=== PATIENT | female | born 1935 | race Hispanic/Latino ===

== ENCOUNTER 2022-06-17 08:42 | Day surgery (SDC) | payer SELFPAY ==
[2022-06-14 17:17] LABS: Absolute Lymphocytes (CBC) 2.7 K/uL (0.7-4.9); Hematocrit 35.9 % (36.0-45.0); Lymphocytes % 37.7 % (15.3-44.8); MCV 96.8 fL (80-100); RBC Red Blood Cell Count 3.71 M/uL (3.86-4.86)
[2022-06-14 17:25] LABS: SARS-CoV-2 Antigen Rapid Res Negative (Negative)
[2022-06-14 17:33] LABS: Albumin 2.9 g/dL (3.4-5.0); Bilirubin Direct 0.2 mg/dL (0-0.2); Bilirubin Total 0.5 mg/dL (0.2-1.0); Potassium 4.2 mmol/L (3.5-5.1); Protein, Total 6.3 g/dL (6.4-8.2)
[2022-06-17] MEDS ORDERED: CEFOXITIN SODIUM 1 GM/VIAL ONE (09:07)
[2022-06-17] MEDS ORDERED: NA CHLORIDE 0.9% 1,000 ML ONE (09:07)
[2022-06-17] MEDS ORDERED: ACETAMINOPHEN 500 MG TAB ONE (09:16)
[2022-06-17] MEDS ORDERED: CELECOXIB 100 MG CAPSULE ONE (09:16)
[2022-06-17] MEDS ORDERED: propofoL 200 MG/20 ML VIAL IV ONE (09:23)
[2022-06-17] MEDS ORDERED: ONDANSETRON 4 MG/2 ML VIAL ONE (09:23)
[2022-06-17] MEDS ORDERED: LIDOCAINE 1% MPF 5 ML VIAL ONE (09:23)
[2022-06-17] MEDS ORDERED: ROCURONIUM 50 MG/5 ML VIAL IV ONE (09:23)
[2022-06-17] MEDS ORDERED: FENTANYL CITR 100 MCG/2 ML ONE (09:23)
--- NOTE | 2022-06-17 10:40 | P.BOP ---
Preoperative diagnosis: symptomatic cholelithiasis, RUQ abd pain, cholecystitis Postoperative diagnosis: same Primary procedure: Laparoscopic cholecystectomy Metal Flow Coordinator: Jackie Suarez (Vinicius) Estimated blood loss: <10cc Specimen: gb Findings: as above Anesthesia: General Complications: None Transferred to: Recovery Room Condition: Good
[2022-06-17] MEDS ORDERED: SUGAMMADEX SODIUM 200 MG/2 ML VIAL IV ONE (10:44)
[2022-06-17] MEDS ORDERED: Mastisol Adhesive Liq ONE (10:49)
--- NOTE | 2022-06-17 11:41 | OP ---
Date of Procedure: 06/17/2022 Surgeon: Luis Davies MD Back Joiner: Jackie Saleem. Preoperative Diagnoses: Symptomatic cholelithiasis, right upper quadrant abdominal pain, cholecystit is. Postoperative Diagnoses: Symptomatic cholelithiasis, right upper quadrant abdominal pain, cholecysti tis. Procedure: Laparoscopic cholecystectomy. Estimated Blood Loss: Less than 10 mL. Specimen: Gallbladder. Anesthesia: General plus local. Indication: This is the case of an 87-year-old patient with above diagnoses. Fully explained to the patient's power of state's attorney and family and the patient itself. The benefits, alternatives, and risk s of laparoscopic possible open cholecystectomy, which include, but not limited to infection, bleedin g, damage to adjacent structures, anesthesia complication, MN, and even . She also understands and the family understands this may not relieve any symptoms. She might need more than one surgical intervention. She understood, signed a consent. Procedure In Detail: The patient was brought to the operating room, placed in supine position. Anes thesia was done without complication. Abdominal area was prepped and draped in the usual sterile fas hion. Local anesthesia was applied followed by sharp incision of the skin in the infraumbilical shea on. The incision was carried down to fascia, which was opened under direct vision. Peritoneum was e ncountered, opened under direct vision. Vicryl #1 placed inside the fascia. Jaime trocar was caref ully introduced. Pneumoperitoneum was obtained. I placed 3 more trocars, 5 mm each one of them in t he epigastric right upper quadrant area under direct visualization. After that, we put a grasper in the fundus of the gallbladder, another grasper in the infundibulum, retracting the gallbladder in the inferolateral fashion, exposing the triangle of Calot, and obtaining critical view. Cystic duct and cystic artery were clearly isolated, freed circumferentially and a connection between those and the gallbladder were clearly identified. I proceeded to ligate this structure with at least 3 clips prox imal, 1 clip distal, ligation in middle. Same was done with the cystic artery. A small little branc h of the cystic artery was also ligated. Hepatic arteries and common bile duct were protected at all times. At that moment, I proceeded to remove the gallbladder from the liver using Bovie cauterizer and removed from abdominal cavity using EndoCatch through the umbilical incision. The area was inspe cted once again. Clips were intact. No bile leak. No bleeding. At that moment, I proceeded to rem ove the trocars under direct vision. Deflated pneumoperitoneum, closed the fascia with a #1 Vicryl. Irrigated subcutaneous tissue, closed that with 3-0 chromic and skin with 3-0 chromic and Steri-Stri ps on top. Sponge count, instrument counts correct. The patient tolerated the procedure well. The patient was sent to recovery in stable condition. RADHA/CHRISTIAN Voice ID: [id number] Report ID: [id number]
--- NOTE | 2022-06-17 11:47 | DS ---
Diagnoses: Symptomatic cholelithiasis, right upper quadrant abdominal pain, cholecystitis. Procedure: Laparoscopic cholecystectomy. Disposition: Home. Activity: As tolerated. No heavy lifting. Plan: Follow up in my office in 1 week. Call for appointment at [phone]. Keep area dry for 48 ra rs, then may shower. Keep Steri-Strip intact. The patient advised to contact her primary doctor reg arding her blood thinners. It is okay from the surgical standpoint so far to resume the medications by tomorrow. Advised the family. HOMERO Voice ID: [id number] Report ID: [id number]
[2022-06-17] MEDS ORDERED: CODEINE 30MG/APAP 300MG TAB ONE (12:14)
[2022-06-17] MEDS ORDERED: CODEINE 30MG/APAP 300MG TAB PO ONE (12:15)
[2022-06-17 13:40] VITALS: BP 112/45; TEMP 97.3; O2SAT 96
== END 2022-06-17 12:35 | disposition home or self-care (01) ==
LOC: OR 08:42
PROVIDERS: ATTEND Surgery
PROC: 0FT44ZZ Resection of Gallbladder, Percutaneous Endoscopic Approach (ICD-10-PCS; principal; 2022-06-17 11:00)
DX: K80.10 Calculus of gallbladder with chronic cholecystitis without obstruction (principal); R10.11 Right upper quadrant pain; Z20.822 Contact with and (suspected) exposure to COVID-19; E11.9 Type 2 diabetes mellitus without complications; E78.00 Pure hypercholesterolemia, unspecified; I50.9 Heart failure, unspecified; I63.9 Cerebral infarction, unspecified
CPT/HCPCS: 36415; 80048; 80076; 82150; 82947; 83690; 85025; 87811; 88304; J0694; J2405; J2704; J3010; J7030

== ENCOUNTER 2022-12-19 00:05 | Emergency (ER) | payer SELFPAY ==
--- OUTSIDE RECORDS SUMMARY | 2022-12-19 00:10 | XMS REPORT | Continuity of Care Document ---
:1935 Author Organization [facility] t Address [address] [place] [address] Care Team Providers Name Role Phone ANDREA SRINIVASAN Attending Clinician Unavailable Julio Terry MD Attending Clinician JES FELICIANO Attending Clinician Unavailable MIGUEL A WELCH Attending Clinician Unavailable CHANDA GANNON I. Attending Clinician Unavailable CHANDA GANNON I. Admitting Clinician Unavailable Payers Payer Name Policy Type Policy Number Effective Date Expiration Date S [facility] - [id number] GENERIC - TAMMY CARE [facility]-MEDICAID - [id number] 2021 2021 MEDICAID 00:00:00 00:00:00 EES PENDING [id number] 2021 MEDICAID 00:00:00 Problems Condition Condition Condition Status Onset Resolution Last Treating Co mments Source Name Details Category Date Date Treatment Clinician Date Ischemic Ischemic Disease [facility] Stroke Stroke Disease Active 2020-[address] [facility] [address] [facility] Allergies, Adverse Reactions, Alerts Allergy Allergy Status Severity Reaction(s) Onset Inactive Treating Comm ents Source Name Type Date Date Clinician NO KNOWN Allergy Active [facility] Social History Social Habit Start Date Stop Date Quantity Comments Source History SDOH [facility] Std Drinks [facility] History SDOH [facility] Alcohol Binge Medical [facility] [facility] History SDOH [facility] Alcohol Comment Medical C enter Alcohol intake 2021-12-06 2021-12-[address] [facility]00 00:00:00 non-drinker Medical [facility] (finding) Tobacco use and 2021-09-17 2021-09-[address] [facility] exposure 00:00:00 00:00:00 Medical Center History SDOH 2021-09-17 2021-09-[address] [facility] Alcohol Frequency 00:00:00 00:00:00 Medical Center Sex Assigned At [address] [facility] 00[facility]00 [facility] Center Smoking Status Start Date Stop Date Source Never smoker [facility] Medications Ordered Filled Start Stop Current Ordering Indication Dosage Frequency Signature Comments Components Source Medication Medication Date Date Medication? Clinician (SIG) Name Name metformin Yes 850mg Take 850 [facility] (GLUCOPHAGE 1-06 mg by Sequ[facility]ah ) 850 MG 14:27: mouth 2 of tablet 43 times Medicin daily e (with meals). ASPIRIN 81 Yes Take by [facility] OR 1-06 mouth. Sequoyah 14:27: of 43 Medicin e atorvastati 2022- No 80mg Take 1 [facility] n (LIPITOR) 1-06 -07 Tablet by [facility] 80 MG 00:00: 05:59 mouth of tablet 00 :00 daily. Medicin e aspirin 81 2020-11 Yes 81mg QD Take [address] [facility] EC 0-25 by mouth [facility] tablet 11:18: daily. Medical [facility] Center metFORMIN 2020-11 Yes 850mg Take [address] (GLUCOPHAGE 0-25 mg by [facility] ) 850 MG 11:18: mouth Medical tablet 58 daily with Center breakfast . glyBURIDE 2020-11 Yes 5mg QD Take [address] (DIABETA) 5 0-25 by mouth Luke s MG tablet 11:18: daily. Medica l 57 Center atorvastati 2020-11- No 80mg QD Take [address] n (LIPITOR) 0-15 10-15 tablet (80 L ukes 80 MG 00:00: 23:59 mg total) Medica l tablet 00 :00 by mouth Center nightly. atorvastati 2020-11- No 80mg Take 80 mg Munir n (LIPITOR) 0-15 -06 by mouth. Co llege 80 MG 00:00: 00:00 of tablet 00 :00 Medicin e Vital Signs Vital Name Observation Time Observation Value Comments Source HEIGHT 2021-12-06 14:23:00 154.9 cm WEIGHT 2021-12-06 14:23:00 68.04 kg Systolic blood 2021-11-29 20:24:00 102 mm[Hg] [facility] pressure Medicine Diastolic blood 2021-11-29 20:24:00 55 mm[Hg] [facility] Medicine Heart rate 2021-11-29 20:24:00 71 /min [facility] Body height 2021-11-29 20:24:00 154.9 cm [facility] HEIGHT 2021-09-17 10:45:00 157.5 cm WEIGHT 2021-09-17 10:45:00 68.493 kg HEIGHT 2021-09-04 17:00:00 160 cm WEIGHT 2021-09-04 17:00:00 68.6 kg HEIGHT 2021-09-04 17:00:00 160 cm WEIGHT 2021-09-04 17:00:00 68.6 kg Procedures This patient has no known procedures. Plan of Care Planned Activity Planned Date Details Comments Source Future Scheduled 2022-12-[address] [facility] Test 00:00:00 Counseling and Medical Cente r Screening (12+) [code = Tobacco Cessation Counseling and Screening (12+)] Future Scheduled 2022-11-[address] [facility] Test 00:00:00 (12+) [code = Medical Center DEPRESSION SCREENING (12+)] Future Scheduled 2022-11-24 FALLS RISK SCREENING [facility] Test 00:00:00 [code = FALLS RISK Medical C enter SCREENING] Future Scheduled 2022-07-[address] [facility] Test 00:00:00 (#1) [code = Medical Center INFLUENZA VACCINE (#1)] Future Scheduled 2022-03-[address] [facility] Test 00:00:00 measurement Medical Center (procedure) [code = 37551774] Future Scheduled 2021-11-29 LIPID PANEL [code = Ordered: [facility] Test 15:01:41 91604-6] 11/29/2021 of Medicine Future Scheduled 2021-11-29 TETANUS SHOT (ADULT) [employer] Test 14:28:50 [code = TETANUS SHOT of Medi cine (ADULT)] Future Scheduled 2021-11-29 ZOSTER VACCINE (1 of [facility] [employer] Test 14:28:50 2) [code = ZOSTER of Medicin e VACCINE (1 of 2)] Future Scheduled 2021-11-29 FALL SCREEN [code = [facility] Test 14:28:50 FALL SCREEN] of Medicine Future Scheduled 2021-11-29 Screening for [facility] Test 14:28:50 osteoporosis of Medicine (procedure) [code = 357844136] Future Scheduled 2021-11-29 Pneumococcal 65+ (1 [employer] Test 14:28:50 of 1 - PPSV23) [code of Medi cine = Pneumococcal 65+ (1 of 1 - PPSV23)] Future Scheduled 2021-11-29 FLU VACCINE > 6 [facility] Test 14:28:50 MONTHS [code = FLU of Medici ne VACCINE > 6 MONTHS] Future Scheduled 2021-11-29 COVID-19 Vaccine (3 [employer] Test 14:28:50 - Booster for Pfizer of Medi cine series) [code = COVID-19 Vaccine (3 - Booster for Pfizer series)] Future Scheduled 1986 SHINGLES VACCINES ([address] [facility] Test 00:00:00 of 2) [code = Medical Center SHINGLES VACCINES (1 of 2)] Future Scheduled 1955 DTAP/TDAP/TD [facility] 00:[facility]00 VACCINES (1 - Tdap) Medical Center [code = DTAP/TDAP/TD VACCINES (1 - Tdap)] Future Scheduled [address] DIABETIC EYE EXAM [facility] Test 00:00:00 [code = DIABETIC EYE Medical Center EXAM] Future Scheduled 1946 Urine screening for [facility] Test 00:00:00 protein (procedure) Medical Center [code = 344456994] Future Scheduled 1942 PNEUMOCOCCAL 65+ YRS [facility] Test 00:00:00 (1 - PCV) [code = Medical nter PNEUMOCOCCAL 65+ YRS (1 - PCV)] Future Scheduled 1936 COVID-[address] [facility] Test 00:00:00 (#1) [code = Medical Center COVID-19 VACCINE (#1)] Encounters Start End Encounter Admission Attending Care Care Encounter Source Date/Time Date/Time Type Type Clinicians Facility Department ID 2022-12-11 2022-12-11 Outpatient [facility] [id number] Conor 14:09:16 14:09:16 0118 F Julito 2022-11-20 2022-11-20 Outpatient [facility] [id number] Conor 17:02:41 17:02:41 1228 F Julito 2022-09-18 2022-09-18 Outpatient [facility] [id number] Conor 15:30:31 15:30:31 1026 F Barton 2021-12-06 2021-12-06 Emergency ER [facility] Emergency [id number] [facility] 17:02:00 21:30:00 [facility] 2021-11-29 2021-11-29 Office MALENA Terry [id number] [facility] 14:00:00 16:38:49 Visit Julio AMBULATOR [id number] College Y [id number] of [id number] [facility] 800 e 2021-09-17 2021-09-17 Outpatient JUNIOR FELICIANO [facility] [id number] [facility] 10:42:41 10:42:41 JES 2021-09-04 2021-09-07 Inpatient ER REBEKAH [facility] Surgery [id number] [facility] 16:42:00 19:11:00 AHMED Results Test Description Test Time Test Comments Results Result Comments Source HEPATIC FUNCTION PANEL 2022-05-03 03:04:10 Test Item Value Reference Range Interpretation Comme nts PROTEIN, TOTAL (test code = 5.6 G/DL 6.1-8.3 L 2228) ALBUMIN (test code = 2201) 3.4 G/DL 3.5-5.2 L BILIRUBIN, TOTAL (test code = 0.5 MG/DL See_Comment [Automated message] The system 2206) which generated this result transmitted ref erence range: <=1.2. The refe rence range was not used to int erpret this result as ruby l/abnormal. BILIRUBIN, DIRECT (test code = 0.3 MG/DL 0.0-0.3 2022) ALKALINE PHOSPHATASE (test 179 U/L 40-142 H code = 2204) AST (test code = 2218) 150 U/L 9-40 H ALT (test code = 2219) 89 U/L 5-40 H UNLE SS OTHERWISE INDICATED, ALL TESTING PER FORMED [facility], [place]. [address], [place] [address] SIMULATION SPECIALIST: Arlyn CHERYBOWEN KIRBY [id number] CAP ACCREDITATION N O. [id number] TSH + FREE T4 [id number] 06:38:26 Test Item Value Reference Range Interpretation Comments TSH, THIRD GENERATION (test code 3.850 UIU/ML 0.400-4.100 = 2821) FREE T4 (THYROXINE) (test code = 1.17 NG/DL 0.80-1.90 2823) HEMOGLOBIN [id number] 04:33:32 Test Item Value Reference Range Interpretation Comments HEMOGLOBIN A1c (test code = 11148) 6.1 % 4.2-5.6 H ALBUMIN, URINE, [id number] 03:31:37 Test Item Value Reference Range Interpretation Comments ALBUMIN, URINE, 3.1 MG/DL NOT ESTAB UNLESS OTHE RWISE RANDOM (test code = INDICATE D, ALL TESTING 22487) [facility]. [address] [place] [address] [facility] DIRECTOR: Arlyn CHERYIA NUMBER [id number] CAP ACCREDITATION N O. [id number] COMPREHENSIVE METABOLIC [id number] 03:29:35 Test Item Value Reference Range Interpretation Comments GLUCOSE (test code = 117 MG/DL 70-99 H 2216) BUN (test code = 11 MG/DL 8-23 2207) CREATININE (test 0.88 MG/DL 0.60-1.30 code = 2214) eGFR (2020 CKD-EPI) 64 ML/MIN/1.73 >60 (test code = 80138) CALC BUN/CREAT (test 13 RATIO 6-28 code = 2235) SODIUM (test code = 143 MEQ/L 553-598 2148) POTASSIUM (test code 3.8 MEQ/L 3.5-5.4 = 2228) CHLORIDE (test code 105 MEQ/L 95-107 = 2215) CARBON DIOXIDE (test 25 MEQ/L 19-31 code = 2206) CALCIUM (test code = 9.5 MG/DL 8.5-10.5 2208) PROTEIN, TOTAL (test 6.1 G/DL 6.1-8.3 code = 2229) ALBUMIN (test code = 3.8 G/DL 3.5-5.2 2200) CALC GLOBULIN (test 2.3 G/DL 1.9-3.7 code = 2240) CALC A/G RATIO (test 1.7 RATIO 1.0-2.6 code = 2234) BILIRUBIN, TOTAL 0.5 MG/DL See_Comment [Automated message] (test code = 220) The syste m which generated this result transmit heriberto reference range : <=1.2. The refe rence range was not u sed to interpret th is result as normal/abnormal . ALKALINE PHOSPHATASE 201 U/L 40-142 H (test code = 220) AST (test code = 81 U/L 9-40 H 2217) ALT (test code = 61 U/L 5-40 H 2218) LIPID [id number] 03:29:35 Test Item Value Reference Range Interpretation Comments CHOLESTEROL (test 138 MG/DL <200 code = 2210) TRIGLYCERIDES (test 67 MG/DL <150 code = 2232) HDL CHOLESTEROL (test 74 MG/DL >39 code = 2220) CALC LDL CHOL (test 50 MG/DL <100 NOTE: C ALCULATED LDL code = 2237) IS BASED ON LAMEBRT-WARD METHOD WHICHINCLUDES ADJUSTABLE TRIGLYCERIDE:VL DL CHOLESTEROL RAT IO.THIS FACTOR VARIES B Y MEASURED TRIGLY CERIDE AND NON-HDLCHOL ESTEROL CONCENTRATIONS WITH INCREASED CALCU LATED LDL SEENIN HIGH ER TRIGLYCERIDE OR LOWER NON-HDL SPECIME NS. FOR MOREINFORMATION , SEE CLIENT ANNOUNCE MENT AT [email or web address] RISK RATIO LDL/HDL 0.68 RATIO <3.22 (test code = 223) POCT-GLUCOSE [id number] 17:17:29 Test Item Value Reference Range Interpretation Comments POC-GLUCOSE METER 154 mg/dL 70-110 H : Notified RN/: (RENE) (test code = TESTED AT [facility] 1168 6699) [facility], [address]: Mold Maker Plaster/Techni noe ID = [id number] for Wh ite (contract), Vinnie ert POCT-GLUCOSE [id number] 12:18:37 Test Item Value Reference Range Interpretation Comments POC-GLUCOSE METER 148 mg/dL 70-110 H : Notified RN/MD: (RENE) (test code = TESTED AT [place] [address] 1538) [facility], [address]: Mold Maker Plaster/Techni noe ID = [id number] for Wh ite (contract), Vinnie ert POCT-GLUCOSE [id number] 08:41:51 Test Item Value Reference Range Interpretation Comments POC-GLUCOSE METER 141 mg/dL 70-110 H : Notified RN/MD: (RENE) (test code = TESTED AT [facility] 67 1538) [facility], [address]: [employer] Maker [employer]aster/Techni noe ID = [id number] for Wh ite (contract), Vinnie ert PROTHROMBIN [id number] 05:20:52 Test Item Value Reference Range Interpretation Comments PROTIME (RENE) 14.0 seconds 11.9-14.2 (test code = 759) INR (RENE) (test 1.09 See_Comment [Automat ed message] code = 370) The system [employer]ifter generated this result transmitted ref erence range: <=5.90. The reference range was not used to int erpret this result as normal/abnormal . RECOMMENDED COUMADIN/WARFARIN INR THERAPY RANGESSTANDARD DOSE: 2.0 - 3.0 Includes: PROPHYLAXIS for venous thrombosis, systemic embolization; TREATMENT for venous thrombosis and/or pulmonary embolus.HIGH RISK: Target INR is 2.5-3.5 for patients with mechanical heart valves.CT, CTANGIO [id number] 15:47:00FU to determine if stroke expanding/rule out hemorrhagic conversion.Unlisted Reason for Exam - ClickYes and Enter Reason Below->No [facility] 1935 Sex: FFINAL REPORT CT, CTANGIO BRAINBRAIN CT WITHOUT CONTRAST INDICATION: Stroke, follow up COMPARISON: 09/04/2021 TECHNIQUE:Rapid acquisition spiral images were obtained between the aortic arch and the cranial vertex during intravenous contrast infusion to reconstruct axial images and angiographic 3D maximum intensity projections (MIP). 3-D volumetric reformatted images were created at a dedicated workstation. Precontrast images of the brain were also obtained. Stenosis evaluation reported in compliance with NASCET criteria. DOSE REDUCTION: Dose modulation, iterative reconstruction, and/or weight-based adjustment of the mA/kV was utilized to reduce the radiation dose to as low as reasonably achievable. FINDINGS:NECT BRAIN:Evolving left MCA infarct within the parietal and temporal lobe without hemorrhagic conversion or midline shift. Mild localized mass effect with sulcal effacement persists. Midline structures are normally developed. Mild chronic microvascular ischemic changes of the perive ntricular and subcortical white matter are present. No hydrocephalus. Orbits are within normal limits. No obstructive paranasal sinus disease. CTA BRAIN:Internal carotid arteries: Petrous, cavernous and supraclinoid portions patent. Middle cerebral arteries: Persistent partial occlusion of the left M2trbevnwv division. Right MCA M1-M2 branches demonstrate normal contrast enhancement.Anterior cerebral arteries: Bilateral ESTHER A1-A2 branches demonstrate normal contrast enhancement.Basilar system: Normal contrast opacification of the vertebrobasilar system.Posterior cerebral arteries: Normal contrast opacification of the bilateral DENTAL BILLING SPECIALIST P1-P2 branches.Venous opacification: Major dural sinuses unremarkable for bolus timing.Additional findings: None. IMPRESSION: Evolving left MCA infarct within the parietal and temporal lobe without hemorrhagic conversion or midline shift. Mild localized mass effect with sulcal effacement persists. 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 Signed: Haylee Galeano Verified Date/Time: 09/06/2021 15:47:57 Reading Location: [address] Neuro Reading Room BASI METABOLIC [id number] 07:10:26 Test Item Value Reference Range Interpretation Comments SODIUM (BEAKER) 138 meq/L 136-145 (test code = 381) POTASSIUM (BEAKER) 4.0 meq/L 3.5-5.1 (test code = 379) CHLORIDE (BEAKER) 110 meq/L 98-107 H (test code = 382) CO2 (BEAKER) (test 21 meq/L 22-29 L code = 355) BLOOD UREA NITROGEN 23 mg/dL 7-21 H (BEAKER) (test code = 354) CREATININE (BEAKER) 0.88 mg/dL 0.57-1.25 (test code = 358) GLUCOSE RANDOM 115 mg/dL 70-105 H (BEAKER) (test code = 652) CALCIUM (BEAKER) 8.4 mg/dL 8.4-10.2 (test code = 697) EGFR (BEAKER) (test 61 mL/min/1.73 ESTIMA HERIBERTO GFR IS code = 1092) sq m NOT ACCURATE CREATININE CLEARANCE IN PREDICTING GLOMERULAR FILTRATION RATE . ESTIMATED GFR I S NOT APPLICABLE FOR DIALYSIS PATIEN TS. Mold Maker Plaster ID - LORI [id number] 07:10:26 Test Item Value Reference Range Interpretation Comments MAGNESIUM (BEAKER) (test code = 2.0 mg/dL 1.6-2.6 627) [employer] Maker Plaster ID - LORI GCBC W/PLT COUNT & AUTO [id number] 06:00:19 Test Item Value Reference Range Interpretation Comments WHITE BLOOD CELL COUNT (BEAKER) 7.1 K/ L 3.5-10.5 (test code = 775) RED BLOOD CELL COUNT (BEAKER) 3.53 M/ L 3.93-5.22 L (test code = 761) HEMOGLOBIN (BEAKER) (test code = 10.5 GM/DL 11.2-15.7 L 410) HEMATOCRIT (BEAKER) (test code = 32.6 % 34.1-44.9 L 411) MEAN CORPUSCULAR VOLUME (BEAKER) 92.4 fL 79.4-94.8 (test code = 753) MEAN CORPUSCULAR HEMOGLOBIN 29.7 pg 25.6-32.2 (BEAKER) (test code = 751) MEAN CORPUSCULAR HEMOGLOBIN CONC 32.2 GM/DL 32.2-35.5 (BEAKER) (test code = 752) RED CELL DISTRIBUTION WIDTH 14.6 % 11.7-14.4 H (BEAKER) (test code = 412) PLATELET COUNT (BEAKER) (test 139 K/CU MM 150-450 L code = 756) MEAN PLATELET VOLUME (BEAKER) 10.4 fL 9.4-12.3 (test code = 754) NUCLEATED RED BLOOD CELLS 0 /100 WBC 0-0 (BEAKER) (test code = 413) NEUTROPHILS RELATIVE PERCENT 59 % (BEAKER) (test code = 429) LYMPHOCYTES RELATIVE PERCENT 30 % (BEAKER) (test code = 430) MONOCYTES RELATIVE PERCENT 8 % (BEAKER) (test code = 431) EOSINOPHILS RELATIVE PERCENT 3 % (BEAKER) (test code = 432) BASOPHILS RELATIVE PERCENT 1 % (BEAKER) (test code = 437) NEUTROPHILS ABSOLUTE COUNT 4.20 K/ L 1.56-6.13 (BEAKER) (test code = 670) LYMPHOCYTES ABSOLUTE COUNT 2.12 K/ L 1.18-3.74 (BEAKER) (test code = 414) MONOCYTES ABSOLUTE COUNT (BEAKER) 0.54 K/ L 0.24-0.36 H (test code = 415) EOSINOPHILS ABSOLUTE COUNT 0.20 K/ L 0.04-0.36 (BEAKER) (test code = 416) BASOPHILS ABSOLUTE COUNT (BEAKER) 0.05 K/ L 0.01-0.08 (test code = 417) IMMATURE GRANULOCYTES-RELATIVE 0 % 0-1 PERCENT (BEAKER) (test code = 2801) SARS-COV2/RT-PCR ([facility])2021-09-05 20:50:31 Test Item Value Reference Range Interpretation Comments SARS-COV2/RT-PCR (test code = Negative Negative [id number]) Negative result for this test determines that SARS-CoV-2 RNA was not present in the specimen above the Limit of Detection (LOD). However, Negative results do not preclude SARS-CoV-2 infection and should not be used as the sole basis for treatment or patient management decisions. Negative results must be combined with clinical observations, patient history, and epidemiological information. A false negative result may occur if a specimen is improperly collected, transported, or handled. A false negative result should be considered if patient's recent exposures or clinical presentation indicate that COVID-19 (SARS-CoV-2) is likely and diagnostic tests for other causes of illness are negative. Re-testing should be considered in cases of suspected false negatives.The limit of detection for this assay is 100 copies/mL.This SARS-CoV-2 test is a real-time RT_PCR test intended for the qualitative detection of nucleic acid from SARS-CoV-2 in a nasopharyngeal swab specimen collected from individuals suspected of COVID-19 by their healthcare provider.This test has not been Food and Drug Administration (FDA) cleared or approved. This is a modified version of an approved Emergency Use Authorization (EUA) and is in the process of review by the FDA. Once authorized by the FDA, the issued EUA will be effective until the declaration that circumstances exist justifying the authorization of the emergency use of in vitro diagnostic tests for detection and/or diagnosis of COVID-19 is terminated under Section 564(b)(2) of the Act or the EUA is revoked under Section 564(g) of the Act.Testing was performed using [employer] SARS-CoV-2 assay.Fact Sheet for Healthcare Providers:https://www.orderTopia/casie/RT SARS-CoV-2 HCP Fact Sheet 51- 250839.pdfFact Sheet for Healthcare Patients:https://www.orderTopia/casie/RT SARS-CoV-2 Patient Fact Sheet EN 51-350088H3.pdfPOCT-GLUCOSE [id number] 17:35:05 Test Item Value Reference Range Interpretation Comments POC-GLUCOSE METER 139 mg/dL 70-110 H : [facility]ED A [facility] ([facility]) (test code [facility], = 1538) [address]: Mold Maker [employer]aster/Techni noe ID = [id number] for Aida allen (contract) [facility] [id number] 16:35:03 Test Item Value Reference Range Interpretation Comments RPR SCREEN ([facility]) (test code = Nonreactive Nonreactive 420) HEMOGLOBIN [id number] 11:55:07 Test Item Value Reference Range Interpretation Comments HEMOGLOBIN A1C ([facility]) (test code = 6.4 % 4.3-6.1 H 368) POCT-GLUCOSE [id number] 11:20:13 Test Item Value Reference Range Interpretation Comments POC-GLUCOSE METER 164 mg/dL 70-110 H : TESTED A T [facility] 6720 (BEAKER) (test code EMMY MEDINAH [place], = 1538) [address]: Mold Maker Plaster/Techni noe ID = [id number] for Jason (contract)[place] BASIC METABOLIC [id number] 07:14:58 Test Item Value Reference Range Interpretation Comments SODIUM (BEAKER) (test 137 meq/L 136-145 code = 381) POTASSIUM (BEAKER) 3.5 meq/L 3.5-5.1 (test code = 379) CHLORIDE (BEAKER) 106 meq/L 98-107 (test code = 382) CO2 (BEAKER) (test 20 meq/L 22-29 L code = 355) BLOOD UREA NITROGEN 22 mg/dL 7-21 H (BEAKER) (test code = 354) CREATININE (BEAKER) 0.93 mg/dL 0.57-1.25 (test code = 358) GLUCOSE RANDOM 154 mg/dL 70-105 H (BEAKER) (test code = 652) CALCIUM (BEAKER) 8.5 mg/dL 8.4-10.2 (test code = 697) EGFR (BEAKER) (test INSUFFIC IENT CLINICAL code = 1092) DATA TO CALCULA TE ESTIMATED GFR. Mold Maker Plaster ID - DIMITRISAYA LHEPATIC FUNCTION [id number] 07:13:06 Test Item Value Reference Range Interpretation Comments TOTAL PROTEIN (BEAKER) (test code = 6.7 gm/dL 6.0-8.3 770) ALBUMIN (BEAKER) (test code = 1145) 3.8 g/dL 3.5-5.0 BILIRUBIN TOTAL (BEAKER) (test code 0.4 mg/dL 0.2-1.2 = 377) BILIRUBIN DIRECT (BEAKER) (test 0.2 mg/dL 0.1-0.5 code = 706) ALKALINE PHOSPHATASE (BEAKER) (test 69 U/L 40-150 code = 346) AST (SGOT) (BEAKER) (test code = 21 U/L 5-34 353) ALT (SGPT) (BEAKER) (test code = 10 U/L 6-55 347) [employer] Maker [employer]aster ID - PIAYA [id number] 07:13:05 Test Item Value Reference Range Interpretation Comments PHOSPHORUS (BEAKER) (test code = 3.0 mg/dL 2.3-4.7 604) [employer] Maker [employer]aster ID Megan SMITH LLIPID [id number] 07:13:05 Test Item Value Reference Range Interpretation Comments TRIGLYCERIDES (BEAKER) (test code = 74 mg/dL 540) CHOLESTEROL (BEAKER) (test code = 202 mg/dL 631) HDL CHOLESTEROL (BEAKER) (test code 62 mg/dL = 976) LDL CHOLESTEROL CALCULATED (BEAKER) 125 mg/dL (test code = 633) Triglyceride Reference Range: Low Risk <150 Borderline 150-199 High Risk 200- 499 Very High Risk >=500Cholesterol Reference Range: Low Risk <200 Borderline 200-239 High Risk >240HDL Cholesterol Reference Range: Low Risk >=60 High Risk <40LDL Cholesterol Reference Range: Optimal <100 Near Optimal 100-129 Borderline 130-159 High 160-189 Very High >=190 [employer] Maker [employer]aster ID Megan SMITH [id number] 07:13:04 Test Item Value Reference Range Interpretation Comments MAGNESIUM (BEAKER) (test code = 2.0 mg/dL 1.6-2.6 627) [employer] ID Megan SMITH LVITAMIN B12 AND [id number] 06:18:43 Test Item Value Reference Range Interpretation Comments VITAMIN B12 1168 pg/mL 213-816 H (BEAKER) (test code = 774) FOLATE (BEAKER) 12.30 ng/mL See_Comment [Automated message] (test code = 362) The system which generated this result transmitted ref erence range: >=7.00. The reference range was not used to interpr et this result as normal/abnormal . Mold Maker Plaster ID - LORI [id number] 06:18:42 Test Item Value Reference Range Interpretation Comments HOMOCYSTEINE (BEAKER) (test code = 9.3 umol/L 5.1-15.4 642) [employer] Maker [employer]aster ID - LORI GTSH/FREE T4 IF [id number] 06:18:42 Test Item Value Reference Range Interpretation Comments THYROID STIMULATING HORMONE 1.195 uIU/mL 0.350-4.940 (BEAKER) (test code = 772) Mold Maker Plaster ID Megan SANDOVAL GPOCT-GLUCOSE [id number] 05:33:55 Test Item Value Reference Range Interpretation Comments POC-GLUCOSE METER 136 mg/dL 70-110 H : TESTED A T [facility] 6720 (BEAKER) (test code = H[place]Y Pedra[place], [address]) [address]: Mold Maker Plaster/Techni noe ID = [id number] for Angelina Moore CBC W/PLT COUNT & AUTO [id number] 05:32:58 Test Item Value Reference Range Interpretation Comments WHITE BLOOD CELL COUNT (BEAKER) 8.9 K/ L 3.5-10.5 (test code = 775) RED BLOOD CELL COUNT (BEAKER) 3.77 M/ L 3.93-5.22 L (test code = 761) HEMOGLOBIN (BEAKER) (test code = 11.0 GM/DL 11.2-15.7 L 410) HEMATOCRIT (BEAKER) (test code = 32.8 % 34.1-44.9 L 411) MEAN CORPUSCULAR VOLUME (BEAKER) 87.0 fL 79.4-94.8 (test code = 753) MEAN CORPUSCULAR HEMOGLOBIN 29.2 pg 25.6-32.2 (BEAKER) (test code = 751) MEAN CORPUSCULAR HEMOGLOBIN CONC 33.5 GM/DL 32.2-35.5 (BEAKER) (test code = 752) RED CELL DISTRIBUTION WIDTH 14.4 % 11.7-14.4 (BEAKER) (test code = 412) PLATELET COUNT (BEAKER) (test 169 K/CU MM 150-450 code = 756) MEAN PLATELET VOLUME (BEAKER) 11.1 fL 9.4-12.3 (test code = 754) NUCLEATED RED BLOOD CELLS 0 /100 WBC 0-0 (BEAKER) (test code = 413) NEUTROPHILS RELATIVE PERCENT 67 % (BEAKER) (test code = 429) LYMPHOCYTES RELATIVE PERCENT 26 % (BEAKER) (test code = 430) MONOCYTES RELATIVE PERCENT 6 % (BEAKER) (test code = 431) EOSINOPHILS RELATIVE PERCENT 0 % (BEAKER) (test code = 432) BASOPHILS RELATIVE PERCENT 0 % (BEAKER) (test code = 437) NEUTROPHILS ABSOLUTE COUNT 5.92 K/ L 1.56-6.13 (BEAKER) (test code = 670) LYMPHOCYTES ABSOLUTE COUNT 2.30 K/ L 1.18-3.74 (BEAKER) (test code = 414) MONOCYTES ABSOLUTE COUNT (BEAKER) 0.55 K/ L 0.24-0.36 H (test code = 415) EOSINOPHILS ABSOLUTE COUNT 0.00 K/ L 0.04-0.36 L (BEAKER) (test code = 416) BASOPHILS ABSOLUTE COUNT (BEAKER) 0.03 K/ L 0.01-0.08 (test code = 417) IMMATURE GRANULOCYTES-RELATIVE 1 % 0-1 PERCENT (BEAKER) (test code = 2801) POCT-GLUCOSE [id number] 00:04:19 Test Item Value Reference Range Interpretation Comments POC-GLUCOSE METER 188 mg/dL 70-110 H : TESTED A T [facility] 6720 (BEAKER) (test code = [place], [address]) [id number]: Mold Maker Plaster/Techni noe ID = [id number] for nAgelina Moore BASIC METABOLIC [id number] 19:06:46 Test Item Value Reference Range Interpretation Comments SODIUM (BEAKER) (test 136 meq/L 136-145 code = 381) POTASSIUM (BEAKER) 3.9 meq/L 3.5-5.1 (test code = 379) CHLORIDE (BEAKER) 102 meq/L 98-107 (test code = 382) CO2 (BEAKER) (test 23 meq/L 22-29 code = 355) BLOOD UREA NITROGEN 17 mg/dL 7-21 (BEAKER) (test code = 354) CREATININE (BEAKER) 0.92 mg/dL 0.57-1.25 (test code = 358) GLUCOSE RANDOM 208 mg/dL 70-105 H (BEAKER) (test code = 652) CALCIUM (BEAKER) 9.2 mg/dL 8.4-10.2 (test code = 697) EGFR (BEAKER) (test INSUFFIC IENT CLINICAL code = 1092) DATA TO CALCULA TE ESTIMATED GFR. Mold Maker Plaster ID - BSCT, CTANGIO [id number] 17:32:00Reason for exam:- >Symptoms onset less than 6 hours and NIHSS 6 or greater [facility] 1935 Sex: FFINAL REPORT CT, BRAIN/STROKE PROTOCOL, CT, CTANGIO BRAIN, CT, CAROTID, ANGIO, CT, CEREBRAL PERFUSION ANALYSIS INDICATION: Focal neuro deficit, new, fixed or worsening, <6 hours COMPARISON: None TECHNIQUE: Rapid acquisition spiral images were obtained between the aortic arch and the cranial vertex during intravenous contrast infusion to reconstruct axial images and angiographic 3D maximum intensity projections (MIP) .Three dimensional reformatted images were created at a dedicated workstation. Precontrast images of the brain were also obtained. Perfusion imaging technique:Arterial input function: ACAVenous outflow function: TorcularSite of normal perfusion: right anterior territory Stenosis evaluation reported in compliance with NASCET criteria. DOSE REDUCTION: Dose modulation, iterative reconstruction, and/or weight-based adjustment of the mA/kV was utilized to reduce the radiationdose to as low as reasonably achievable. FINDINGS:CTA head:There is hypoattenuation with loss of astudillo-white differentiation within the left parieto-occipital lobe and posterior left temporal lobe, consistent with acute infarct in the left MCA inferior division. No large intracranial hemorrhage, although there is retained IV contrast from prior contrast-enhanced exam which may obscure small subarachnoid hemorrhage. There is no hydrocephalus or midline shift. The skull is intact. There is a nonocclusive thrombus within the left MCA M2 inferior division. Other intracranial arteries are unremarkable. The left [employer] is predominantly supplied by [employer]. The major intradural venous sinuses are patent. CTA neck:Great vessel origins: No occlusion or high-grade stenosis. Carotid arteries: No occlusion or high-grade stenosis. Vertebral arteries: No occlusion or high-grade stenosis. Mild degenerative changes of the cervical spine. Cervical soft tissues are unremarkable. Visualized lung apices are clear. CT PERFUSION PARAMETRIC MAPS: CBF: Decreased in the left MCA distribution.CBV: Decreased in the left MCA distribution.MTT: Elevated in the left MCA distributionTmax: Elevated in the posterior left MCA distribution. rCBF<30%: 20 ccTMax>6s: 66 ccMismatch volume: 46 ccMismatch ratio: 3.3 IMPRESSION: 1.Ac kaia infarct in the left MCA inferior division.2.No large intracranial hemorrhage or mass effect. Small subarachnoid hemorrhages may be obscured by retained IV contrast.3.Nonocclusive thrombus within the left MCA M2 inferior division.4.Perfusion analysis demonstrates 66 cc of tissue at risk, mismatch ra rafa 3.3. The findings were discussed with the stroke neurology resident on 09/04/2021 5:27 PM. Signed: Sanchez De Luna Verified Date/Time: 09/04/2021 17:32:45 CT, CAROTID, [id number] 17:32:00Reason for exam:- >Symptoms onset less than 6 hours and NIHSS 6 or greater [facility] 1935 Sex: FFINAL REPORT CT, BRAIN/STROKE PROTOCOL, CT, CTANGIO BRAIN, CT, CAROTID, ANGIO, CT, CEREBRAL PERFUSION ANALYSIS INDICATION: Focal neuro deficit, new, fixed or worsening, <6 hours COMPARISON: None TECHNIQUE: Rapid acquisition spiral images were obtained between the aortic arch and the cranial vertex during intravenous contrast infusion to reconstruct axial images and angiographic 3D maximum intensity projections (MIP) .Three dimensional reformatted images were created at a dedicated workstation. Precontrast images of the brain were also obtained. Perfusion imaging technique:Arterial input function: ACAVenous outflow function: TorcularSite of normal perfusion: right anterior territory Stenosis evaluation reported in compliance with NASCET criteria. DOSE REDUCTION: Dose modulation, iterative reconstruction, and/or weight-based adjustment of the mA/kV was utilized to reduce the radiationdose to as low as reasonably achievable. FINDINGS:CTA head:There is hypoattenuation with loss of astudillo-white differentiation within the left parieto-occipital lobe and posterior left temporal lobe, consistent with acute infarct in the left MCA inferior division. No large intracranial hemorrhage, although there is retained IV contrast from prior contrast-enhanced exam which may obscure small subarachnoid hemorrhage. There is no hydrocephalus or midline shift. The skull is intact. There is a nonocclusive thrombus within the left MCA M2 inferior division. Other intracranial arteries are unremarkable. The left [employer] is predominantly supplied by [employer]. The major intradural venous sinuses are patent. CTA neck:Great vessel origins: No occlusion or high-grade stenosis. Carotid arteries: No occlusion or high-grade stenosis. Vertebral arteries: No occlusion or high-grade stenosis. Mild degenerative changes of the cervical spine. Cervical soft tissues are unremarkable. Visualized lung apices are clear. CT PERFUSION PARAMETRIC MAPS: CBF: Decreased in the left MCA distribution.CBV: Decreased in the left MCA distribution.MTT: Elevated in the left MCA distributionTmax: Elevated in the posterior left MCA distribution. rCBF<30%: 20 ccTMax>6s: 66 ccMismatch volume: 46 ccMismatch ratio: 3.3 IMPRESSION: 1.Ac kaia infarct in the left MCA inferior division.2.No large intracranial hemorrhage or mass effect. Small subarachnoid hemorrhages may be obscured by retained IV contrast.3.Nonocclusive thrombus within the left MCA M2 inferior division.4.Perfusion analysis demonstrates 66 cc of tissue at risk, mismatch ra rafa 3.3. The findings were discussed with the stroke neurology resident on 09/04/2021 5:27 PM. Signed: Sanchez De Luna Verified Date/Time: 09/04/2021 17:32:45 CT, CEREBRAL PERFUSION [id number] 17:32:00Reason for exam:->Symptom onset less than 6 hours and NIHSS 6 or greater [facility] 1935 Sex: FFINAL REPORT CT, BRAIN/STROKE PROTOCOL, CT, CTANGIO BRAIN, CT, CAROTID, ANGIO, CT, CEREBRAL PERFUSION ANALYSIS INDICATION: Focal neuro deficit, new, fixed or worsening, <6 hours COMPARISON: None TECHNIQUE: Rapid acquisition spiral images were obtained between the aortic arch and the cranial vertex during intravenous contrast infusion to reconstruct axial images and angiographic 3D maximum intensity projections (MIP) .Three dimensional reformatted images were created at a dedicated workstation. Precontrast images of the brain were also obtained. Perfusion imaging technique:Arterial input function: ACAVenous outflow function: TorcularSite of normal perfusion: right anterior territory Stenosis evaluation reported in compliance with NASCET criteria. DOSE REDUCTION: Dose modulation, iterative reconstruction, and/or weight-based adjustment of the mA/kV was utilized to reduce the radiationdose to as low as reasonably achievable. FINDINGS:CTA head:There is hypoattenuation with loss of astudillo-white differentiation within the left parieto-occipital lobe and posterior left temporal lobe, consistent with acute infarct in the left MCA inferior division. No large intracranial hemorrhage, although there is retained IV contrast from prior contrast-enhanced exam which may obscure small subarachnoid hemorrhage. There is no hydrocephalus or midline shift. The skull is intact. There is a nonocclusive thrombus within the left MCA M2 inferior division. Other intracranial arteries are unremarkable. The left [employer]IST is predominantly supplied by [employer]. The major intradural venous sinuses are patent. CTA neck:Great vessel origins: No occlusion or high-grade stenosis. Carotid arteries: No occlusion or high-grade stenosis. Vertebral arteries: No occlusion or high-grade stenosis. Mild degenerative changes of the cervical spine. Cervical soft tissues are unremarkable. Visualized lung apices are clear. CT PERFUSION PARAMETRIC MAPS: CBF: Decreased in the left MCA distribution.CBV: Decreased in the left MCA distribution.MTT: Elevated in the left MCA distributionTmax: Elevated in the posterior left MCA distribution. rCBF<30%: 20 ccTMax>6s: 66 ccMismatch volume: 46 ccMismatch ratio: 3.3 IMPRESSION: 1.Ac kaia infarct in the left MCA inferior division.2.No large intracranial hemorrhage or mass effect. Small subarachnoid hemorrhages may be obscured by retained IV contrast.3.Nonocclusive thrombus within the left MCA M2 inferior division.4.Perfusion analysis demonstrates 66 cc of tissue at risk, mismatch ra rafa 3.3. The findings were discussed with the stroke neurology resident on 09/04/2021 5:27 PM. Signed: Sanchez De Luna Verified Date/Time: 09/04/2021 17:32:45 CT, BRAIN/STROKE [id number] 17:32:00 [facility] 1935 Sex: FFINAL REPORT CT, BRAIN/STROKE PROTOCOL, CT, CTANGIO BRAIN, CT, CAROTID, ANGIO, CT, CEREBRAL PERFUSION ANALYSIS INDICATION: Focal neuro deficit, new, fixed or worsening, <6 hours COMPARISON: None TECHNIQUE: Rapid acquisition spiral images were obtained between the aortic arch and the cranial vertex during intravenous contrast infusion to reconstruct axial images and angiographic 3D maximum intensity projections (MIP) .Three dimensional reformatted images were created at a dedicated workstation. Precontrast images of the brain were also obtained. Perfusion imaging technique:Arterial input function: ACAVenous outflow function: TorcularSite of normal perfusion: right anterior territory Stenosis evaluation reported in compliance with NASCET criteria. DOSE REDUCTION: Dose modulation, iterative reconstruction, and/or weight-based adjustment of the mA/kV was utilized to reduce the radiation dose to as low as reasonably achievable. FINDINGS:CTA head:There is hypoattenuation with loss of astudillo-white differentiation within the left parieto-occipital lobe and posterior left temporal lobe, consistent with acute infarct in the left MCA inferior division. No large intracranial hemorrhage, although there is retained IV contrast from prior contrast-enhanced exam which may obscure small subarachno id hemorrhage. There is no hydrocephalus or midline shift. The skull is intact. There is a nonocclusive thrombus within the left MCA M2 inferior division. Other intracranial arteries are unremarkable. The left [employer] B[employer]IST is predominantly supplied by [employer]. The major intradural venous sinuses are patent. CTAneck:Great vessel origins: No occlusion or high-grade stenosis. Carotid arteries: No occlusion or high-grade stenosis. Vertebral arteries: No occlusion or high-grade stenosis. Mild degenerative changesof the cervical spine. Cervical soft tissues are unremarkable. Visualized lung apices are clear. CT PERFUSION PARAMETRIC MAPS: CBF: Decreased in the left MCA distribution.CBV: Decreased in the left MCA distribution.MTT: Elevated in the left MCA distributionTmax: Elevated in the posterior left MCA distribution. rCBF<30%: 20 ccTMax>6s: 66 ccMismatch volume: 46 ccMismatch ratio: 3.3 IMPRESSION: 1.Acute infarct in the left MCA inferior division.2.No large intracranial hemorrhage or mass effect. Small subarachnoid hemorrhages may be obscured by retained IV contrast.3.Nonocclusive thrombus within the left MCA M2 inferior division.4.Perfusion analysis demonstrates 66 cc of tissue at risk, mismatch ratio 3.3. The findings were discussed with the stroke neurology resident on 09/04/2021 5:27 PM. Signed: Sanchez De Luna Verified Date/Time: 09/04/2021 17:32:45
--- NOTE | 2022-12-19 01:01 | ER ---
Nurse's Notes [facility] Name: Yanira Chavira Age: 87 yrs Sex: Female : 1935 Arrival Date: 12/19/2022 Time: 00:08 Bed 10 Private MD: Diagnosis: Transient cerebral ischemic attack, unspecified Presentation: 12/19 00:25 Chief complaint: Patient states: She had her ears cleaned by a doctor yesterday and had kd3 some bleeding from the left ear. Today she has ear pains in both ears and says she doesn't feel very good. She does not say that she is dizzy. Coronavirus screen: Vaccine status: Patient reports receiving the 2nd dose of the covid vaccine. Ebola Screen: No symptoms or risks identified at this time. Initial Sepsis Screen: Does the patient meet any 2 criteria? No. Patient's initial sepsis screen is negative. Does the patient have a suspected source of infection? No. Patient's initial sepsis screen is negative. Risk Assessment: Do you want to hurt yourself or someone else? Patient reports no desire to harm self or others. Onset of symptoms was December 19, 2022. 00:25 Method Of Arrival: Wheelchair kd3 00:25 Acuity: TRISTIN 4 kd3 Triage Assessment: 00:26 General: Appears in no apparent distress. Behavior is calm, cooperative. Pain: kd3 Complains of pain in right ear and left ear. EENT:. Historical: - Home Meds: 00:26 atorvastatin 80 mg oral tab [Active]; metformin 850 mg Oral tab [Active]; Eliquis 2.5 kd3 mg oral tab [Active]; multivitamin oral [Active]; - Immunization history:: Adult Immunizations up to date. - Social history:: Smoking status: Patient denies any tobacco usage or history of. Screenin:28 [facility] ED Fall Risk Assessment (Adult) History of falling in the last 3 months, kd3 including since admission No falls in past 3 months (0 pts) Confusion or Disorientation No (0 pts) Intoxicated or Sedated No (0 pts) Impaired Gait Yes (1 pt) Mobility Assist Device Used Yes (1 pt) Altered Elimination No (0 pt) Score/Fall Risk Level 0 - 2 = Low Risk Oriented to surroundings. Abuse screen: Denies threats or abuse. Denies injuries from another. Nutritional screening: No deficits noted. Tuberculosis screening: No symptoms or risk factors identified. Assessment: 00:59 General: Appears in no apparent distress. comfortable, Behavior is calm, cooperative. lg3 Pain: Complains of pain in left ear and right ear. Neuro: No deficits noted. Shields Agitation-Sedation Scale (RASS): 0 - Alert and Calm Level of Consciousness is awake, alert, obeys commands, Oriented to person, place, time, situation. Cardiovascular: No deficits noted. Denies chest pain, shortness of breath, Capillary refill < 3 seconds Clubbing of nail beds is absent JVD is absent Patient's skin is warm and dry. Respiratory: No deficits noted. Airway is patent Trachea midline Respiratory effort is even, unlabored, Respiratory pattern is regular, symmetrical. GI: No deficits noted. No signs and/or symptoms were reported involving the gastrointestinal system. : No deficits noted. No signs and/or symptoms were reported regarding the genitourinary system. EENT: No deficits noted. Reports pain in left ear and right ear. Derm: No deficits noted. No signs and/or symptoms reported regarding the dermatologic system. Skin is intact, Skin is dry, Skin is normal. Musculoskeletal: No deficits noted. Circulation, motion, and sensation intact. Range of motion: intact in all extremities. Vital Signs: 00:19 BP 107 / 52; Pulse 63; Resp 19; Temp 98.2(TE); Pulse Ox 97% on R/A; Weight 49.9 kg; kd3 ED Course: 00:08 Patient arrived in ED. ja2 00:23 Derick Leon MD is Attending Physician. bs3 00:26 Triage completed. kd3 00:26 Arm band placed on right wrist. kd3 00:59 Patient has correct armband on for positive identification. Bed in low position. Call lg3 light in reach. Side rails up X 1. Client placed on continuous cardiac and pulse oximetry monitoring. NIBP monitoring applied. Door closed. Noise minimized. Warm blanket given. Family accompanied patient. 00:59 No provider procedures requiring assistance completed. Patient did not have IV access lg3 during this emergency room visit. Administered Medications: No medications were administered Medication: 00:59 VIS not applicable for this client. lg3 Outcome: 01:01 Discharge ordered by . bs3 01:06 Discharged to home via wheelchair, with family. lg3 01:06 Condition: stable 01:06 Discharge instructions given to patient, group worker, Instructed on discharge instructions, Demonstrated understanding of instructions. 01:06 Patient left the ED. lg3 Signatures: Diamante Bond, RN RN lg3 Shelley Wall Kyli, RN RN kd3 Derick Leon MD MD bs3
--- NOTE | 2022-12-19 01:01 | EDPHYS ---
Physician Documentation [facility] Name: Yanira Chavira Age: 87 yrs Sex: Female : 1935 Arrival Date: 12/19/2022 Time: 00:08 Bed 10 Private MD: ED Physician Derick Leon HPI: 12/19 00:58 This 87 yrs old Female presents to ER via Wheelchair with complaints of Ear bs3 Pain, Doesn't Feel Right. 01:02 87yo f hx of cva, bed bound, baseline confusion woke up tonight after sleeping with bs3 confusion. Per her daughters at bedside she woke up and said that she was ready to be with Oleg and ready to . She had some difficulty with her words as well. No unilateral symptoms. The symptoms resolved by the time the patient got here and she is requesting to go home. Hx is provided mostly by family as the patient has baseline confusion, but here the patient is requesting to go home and sleep. . Historical: - Home Meds: 00:26 atorvastatin 80 mg oral tab [Active]; metformin 850 mg Oral tab [Active]; Eliquis 2.5 kd3 mg oral tab [Active]; multivitamin oral [Active]; - Immunization history:: Adult Immunizations up to date. - Social history:: Smoking status: Patient denies any tobacco usage or history of. ROS: 01:02 Unable to obtain ROS due to baseline dementia, when asked ROS pt denies headache, chest bs3 pain, abd pain, or any other symptoms, but pt is not a reliable historian. . Exam: 01:02 Constitutional: This is a well developed, well nourished patient who is awake, alert, bs3 and in no acute distress. Head/Face: Normocephalic, atraumatic. Cardiovascular: Regular rate and rhythm with a normal S1 and S2. symmetric pulses in upper extremities Respiratory: Lungs have equal breath sounds bilaterally, clear to auscultation, no respiratory distress MS/ Extremity: Pulses equal, no cyanosis. Neurovascular intact. Full, normal range of motion. Neuro: no focal deficits, alert and oriented to self, normal cranial nerves, symmetric strength in all extremities. Vital Signs: 00:19 BP 107 / 52; Pulse 63; Resp 19; Temp 98.2(TE); Pulse Ox 97% on R/A; Weight 49.9 kg; kd3 MDM: 00:23 Patient medically screened. bs3 01:02 Differential Diagnosis: CVA, electrolyte abnormality, hypoglycemia, intracranial bleed, bs3 meningitis, TIA, UTI, volume depletion. Consideration of Admission/Observation Patient was admitted/placed on observation. Test considered but Not performed: Labs: not done. CT: ct brain not performed. Historians other than the Patient: Family Member: daughters. ED course: Very long shared decision-making conversation with Arabic interpretation at bedside to assist the patient here was requesting to go home he did not want any tests done the patient's family noted that she is now completely at her baseline and they agree that she appears to want to go home we discussed the possibility that this is a recurrent "mini stroke" (TIA) but there are other considerations such as electrolyte abnormality infectious process that we should exclude we had a long conversation and after shared decision making given the patient's underlying conditions they wanted to go home and noted that they would return tomorrow if the symptoms reoccurred but the patient wanted to go home and go to bed and therefore we will evaluate this decision and was instructed to return with any concerns or if a wanted to work-up her symptoms. Administered Medications: No medications were administered Disposition Summary: 12/19/22 01:01 Discharge Ordered Location: Home bs3 Problem: new bs3 Symptoms: are resolved bs3 Condition: Fair bs3 Diagnosis - Transient cerebral ischemic attack, unspecified bs3 Followup: bs3 - With: Emergency Department - When: Tomorrow - Reason: Discharge Instructions: - Discharge Summary Sheet bs3 - Transient Ischemic Attack bs3 Forms: - Medication Reconciliation Form bs3 - Thank You Letter bs3 - Antibiotic Education bs3 - Prescription Opioid Use bs3 Signatures: Amanda Ray RN RN kd3 Derick Leon MD MD bs3
[2022-12-19 02:06] VITALS: BP 107/52; TEMP 98.2; O2SAT 97
== END 2022-12-19 01:06 | disposition home or self-care (01) ==
LOC: ER 00:05
DX: G45.9 Transient cerebral ischemic attack, unspecified (principal); Z79.01 Long term (current) use of anticoagulants
CPT/HCPCS: 99281

== ENCOUNTER 2023-05-28 21:20 | Inpatient (IN) | payer SELFPAY ==
[2023-05-28 21:34] LABS: Absolute Lymphocytes (CBC) 2.3 K/uL (0.7-4.9); Hematocrit 32.3 % (36.0-45.0); MPV 7.8 fL (7.6-11.3)
--- NOTE | 2023-05-28 21:37 | RAD REPORT ---
EXAM DESCRIPTION: CT - Ct Stroke Brain Wo Cont - 05/28/2023 9:28 pm CLINICAL HISTORY: Right-sided weakness COMPARISON: Not available TECHNIQUE: Computed axial tomography of the head was obtained. All CT scans are performed using dose optimization technique as appropriate and may include automated exposure control or mA/KV adjustment according to patient size. FINDINGS: An intracranial bleed is not seen . The ventricles are normal in caliber. No extra-axial fluid collection is noted. Moderate low-density left cerebrum compatible with old infarction. Mild low-density areas periventricular and deep white matter ischemic changes secondary to small vess el disease Fluid within the sinuses/ mastoids is not seen. IMPRESSION: No acute intracranial abnormality is seen. If patient's symptoms persist MRI of the bra in would be recommended Kathie of the emergency room was notified at 9:17 p.m. May 28, 2023
[2023-05-28] MEDS ORDERED: LORazepam 2 MG/ML VIAL ONE (21:40)
[2023-05-28] MEDS ORDERED: NA CHLORIDE 0.9% 1,000 ML ONE (21:40)
[2023-05-28 21:55] LABS: ALT/SGPT 66 U/L (13-56); AST/SGOT 62 U/L (15-37); Albumin 2.6 g/dL (3.4-5.0); Alkaline Phosphatase 124 U/L (45-117); BUN Blood Urea Nitrogen 17 mg/dL (7-18); Bicarbonate 27 mEq/L (21-32); Bilirubin Direct 0.2 mg/dL (0-0.2); Bilirubin Indirect, Calculated 0.2 mg/dL (0.2-0.8); Bilirubin Total 0.4 mg/dL (0.2-1.0); Glomerular Filtration Rate 84 ml/min (=/>90); Glucose Level 166 mg/dL (74-106); Magnesium 1.9 mg/dL (1.6-2.4); Potassium 4.3 mEq/L (3.5-5.1); Protein, Total 5.7 g/dL (6.4-8.2); Sodium Level 138 mEq/L (136-145); Troponin High Sensitivity 12.3 pg/mL (<58.9)
[2023-05-28 22:17] LABS: C-Reactive Protein < 2.90 mg/L (<3.00)
[2023-05-28 22:18] LABS: Specific Gravity 1.025 (1.005-1.030); Urine Bacteria <20 /HPF (<20); Urine Bilirubin NEGATIVE (Negative); Urine Blood 2+ (Negative); Urine Clarity Extremely Turbid (Clear); Urine Color Yellow (Yellow); Urine Crystals Unidentified Few /HPF (None Seen); Urine Glucose NEGATIVE (Negative); Urine Granular Casts >20 /LPF (None Seen); Urine Mucus 2+ /HPF (None Seen); Urine Protein 2+ (Negative); Urine RBC >50 /HPF (None Seen); Urine Urobilinogen 1+ (Normal); Urine WBC Clump Many /HPF (None Seen)
--- NOTE | 2023-05-28 22:31 | RAD REPORT ---
EXAM DESCRIPTION: Vikram Single View05/28/2023 10:10 pm CLINICAL HISTORY: Right-sided weakness/slurred speech COMPARISON: none FINDINGS: Opacification mid and lower right hemithorax. Small left pleural effusion suspected. Mild left lung opacities Heart is mildly to moderately enlarged IMPRESSION: Opacification mid and lower right hemithorax may represent a combination of pleural effu lyssa and pneumonia or atelectasis. CT Small left pleural effusion probably is present. Mild left lung opacities may represent pulmonary edema or pneumonia
[2023-05-28 22:44] LABS: Protime INR 1.34
[2023-05-28 22:54] LABS: SARS-CoV-2 Antigen Rapid Res Negative (Negative)
[2023-05-28] MEDS ORDERED: NA CHLORIDE 0.9% 100 ML ONE (23:04)
[2023-05-28] MEDS ORDERED: PIPERACIL/TAZO 3.375 GM VIAL IV ONE (23:04)
[2023-05-29] MEDS ORDERED: ONDANSETRON 4 MG/2 ML VIAL ONE (00:15)
[2023-05-29] MEDS ORDERED: ALBUMIN HUMAN 25% 100 ML IV ONE (00:30)
[2023-05-29] MEDS ORDERED: MORPHINE 2 MG/ML SYR ONE (00:42)
[2023-05-29 01:04] LABS: Troponin High Sensitivity 172.4 pg/mL (<58.9)
--- NOTE | 2023-05-29 01:07 | ER ---
Nurse's Notes [facility] Name: Yanira Chavira Age: 88 yrs Sex: Female : 1935 Arrival Date: 05/28/2023 Time: 21:20 Bed 4 Private MD: Diagnosis: Pyelonephritis acute;Bilateral pleural effusions, lactic acidosis, immobility complications, bilateral atelectasis, acute generalized tremors, generalized weakness, hyperglycemia, hypoalbuminemia Presentation: 05/28 21:22 Chief complaint: EMS states: toned out by family for S\T\S of stroke. LKN 1900. family lg3 stated new onset right sided weakness, slurred speech and right sided facial convulsions. Coronavirus screen: At this time, unable to obtain information related to travel outside the [place] Ebola Screen: No symptoms or risks identified at this time. Initial Sepsis Screen: Does the patient meet any 2 criteria? No. Patient's initial sepsis screen is negative. Does the patient have a suspected source of infection? No. Patient's initial sepsis screen is negative. Risk Assessment: Do you want to hurt yourself or someone else? Patient reports no desire to harm self or others. Onset of symptoms was May 28, 2023 at 19:00. 21:22 Method Of Arrival: EMS: [facility] lg3 21:22 Acuity: TRISTIN 2 lg3 Triage Assessment: 21:24 General: Appears in no apparent distress. Behavior is flat. Pain: Denies pain. EENT: No lg3 deficits noted. No signs and/or symptoms were reported regarding the EENT system. Oral mucosa is moist. Neuro: Shields Agitation-Sedation Scale (RASS): 0 - Alert and Calm Level of Consciousness is awake, confused, Oriented to person, place. Cardiovascular: No deficits noted. Denies chest pain, Capillary refill < 3 seconds Clubbing of nail beds is absent JVD is absent Patient's skin is warm and dry. Respiratory: No deficits noted. Airway is patent Respiratory effort is even, unlabored, Respiratory pattern is regular, symmetrical. GI: No deficits noted. No signs and/or symptoms were reported involving the gastrointestinal system. Abdomen is flat, non-distended. : No deficits noted. No signs and/or symptoms were reported regarding the genitourinary system. Derm: No deficits noted. No signs and/or symptoms reported regarding the dermatologic system. Skin is intact, is thin, Skin is dry, Skin is normal, Skin temperature is warm. Musculoskeletal: right sided weakness and right sided facial twitching noted. Historical: - Allergies: 21:24 Unable to obtain; lg3 - Home Meds: 21:24 Eliquis 2.5 mg Oral tab [Active]; metformin 850 mg Oral tab [Active]; atorvastatin 80 lg3 mg Oral tab [Active]; multivitamin Oral [Active]; - PMHx: 21:24 TIA; CVA; Diabetes mellitus; lg3 - PSHx: 21:24 Unable to Obtain; lg3 - Immunization history:: Adult Immunizations unknown. - Social history:: Smoking status: unknown. - Family history:: not pertinent. Screenin:28 [facility] ED Fall Risk Assessment (Adult) History of falling in the last 3 months, lg3 including since admission No falls in past 3 months (0 pts). Abuse screen: Denies threats or abuse. Denies injuries from another. Nutritional screening: No deficits noted. Tuberculosis screening: No symptoms or risk factors identified. 21:28 VAN Screening: Arm Drift: Flaccid or no effort against gravity. Visual Disturbance: No rv visual disturbance noted. Aphasia: Expressive aphasia noted. Provider notified of +VAN scoring. 21:38 [place] Swallow Protocol 3 oz Water Swallow Challenge: Pt able to drink all water without lg3 stopping, coughing, choking or throat clearing: No Result: FAIL MD Notified: Iam Gay MD. 21:44 VAN Screening: Arm Drift: Flaccid or no effort against gravity. Aphasia: Patient lg3 exhibits both expressive and receptive aphasia. Provider notified of +VAN scoring. Assessment: 21:27 General: see triage assessment . lg3 21:29 General: TNK contraindicated due to eliquis. . kd3 21:59 Reassessment: Patient appears in no apparent distress at this time. No changes from lg3 previously documented assessment. Patient and/or family updated on plan of care and expected duration. Pain level reassessed. 05/29 02:15 Reassessment: Patient appears in no apparent distress at this time. No changes from lg3 previously documented assessment. Patient and/or family updated on plan of care and expected duration. Pain level reassessed. Vital Signs: 05/28 21:22 BP 127 / 49; Pulse 68; Resp 19 S; Pulse Ox 97% on R/A; Weight 106 kg (M); lg3 21:58 BP 146 / 55; Pulse 95; Resp 19 S; Pulse Ox 100% on R/A; lg3 23:06 BP 137 / 72; Pulse 89; Resp 16 S; Pulse Ox 99% on R/A; lg3 05/29 01:59 BP 147 / 72; Pulse 88; Resp 17 S; Pulse Ox 100% on R/A; kd3 Cristiana Coma Score: 05/28 21:33 Eye Response: spontaneous(4). Motor Response: obeys commands(6). Verbal Response: sp4 inappropriate words(3). Total: 13. NIH Stroke Scale Scores: 21:41 NIHSS Score: 18 rv ED Course: 21:21 Patient arrived in ED. sb4 21:22 Iam Gay MD is Attending Physician. sp4 21:24 Triage completed. lg3 21:24 Arm band placed on left wrist. lg3 21:27 Basic Metabolic Panel Sent. kd3 21:27 CBC with Diff Sent. kd3 21:27 Hepatic Function Sent. kd3 21:27 High Sensitivity Troponin Sent. kd3 21:27 Magnesium Sent. kd3 21:27 Protime (+inr) Sent. kd3 21:27 Ptt, Activated Sent. kd3 21:28 Maintain EMS IV. Dressing intact. Good blood return noted. Site clean \T\ dry. Gauge \T\ lg 3 site: 20 LAC. Patient maintains SpO2 saturation greater than 95% on room air. 21:28 Basic Metabolic Panel Sent. lg3 21:28 CBC with Diff Sent. lg3 21:28 Hepatic Function Sent. lg3 21:28 High Sensitivity Troponin Sent. lg3 21:28 Magnesium Sent. lg3 21:28 Protime (+inr) Sent. lg3 21:28 Ptt, Activated Sent. lg3 21:28 Patient has correct armband on for positive identification. Placed in gown. Bed in low lg3 position. Call light in reach. Side rails up X2. Client placed on continuous cardiac and pulse oximetry monitoring. NIBP monitoring applied. secured entrance monitor on. Door closed. Noise minimized. Warm blanket given. Family accompanied patient. 21:30 CT Stroke Brain w/o Contrast In Process Unspecified. EDMS 21:43 Amanda Ray, RN is Primary Nurse. kd3 21:43 Maxwell cath inserted, using sterile technique, 16 Fr., by ED staff, balloon inflated, to lg3 gravity drainage, urine specimen collected. 22:12 Stroke CXR 1 View In Process Unspecified. EDMS 22:33 Influenza Screen (a \T\ B) Sent. oe 22:34 SARS RAPID Sent. oe 22:34 Lactate w/ 2H reflex if indic. Sent. oe 22:50 Inserted saline lock: 22 gauge in right forearm, using aseptic technique. Blood oe collected. 23:00 CT Head Angio In Process Unspecified. EDMS 23:01 CT Neck Angio In Process Unspecified. EDMS 23:59 Chest Single View XRAY In Process Unspecified. EDMS 07 01:05 Kwan Zaragoza MD is Hospitalizing Provider. sp4 01:06 Frank Odonnell MD is Hospitalizing Provider. la1 02:11 No provider procedures requiring assistance completed. Patient admitted, IV remains in lg3 place. intact, No redness/swelling at site. Administered Medications: 05/28 21:37 Drug: Ativan IVP 1 mg Route: IVP; Site: left antecubital; 3 05/29 02:02 Follow up: Response: No adverse reaction kd3 05/28 21:37 Drug: NS 0.9% IV 1000 ml Route: IV; Rate: 75 ml/hr; Site: left antecubital; 3 05/29 02:15 Follow up: IV Status: Infusion continued upon admission 3 05/28 23:06 Drug: Piperacillin-Tazobactam IVPB 3.375 grams Route: IVPB; Infused Over: 60 mins; lg3 Site: right forearm; 05/29 02:01 Follow up: IV Status: Completed infusion; IV Intake: 100ml kd3 05/28 23:49 CANCELLED (Inappropriate at this time): Cephalexin PO 500 mg PO once lg3 05/29 00:15 Drug: Ondansetron IVP 4 mg Route: IVP; Site: right forearm; rv 02:01 Follow up: Response: No adverse reaction kd3 00:27 Drug: Albumin IVPB 25 grams Volume: 100 ml; Route: IVPB; Site: right forearm; rv 02:01 Follow up: IV Status: Completed infusion kd3 00:35 Drug: morphine IVP or IV 1 mg Route: IVP; Infused Over: 2 mins; Site: left antecubital; rv 02:01 Follow up: Response: No adverse reaction kd3 02:01 Not Given (Physician Discretion): Aspirin PO Chewable Tablet 324 mg PO once; 81 mg kd3 tablets x 4 Medication: 02:12 VIS not applicable for this client. lg3 Intake: 02:01 IV: 100ml; Total: 100ml. kd3 Outcome: 01:06 Decision to Hospitalize by Provider. sp4 02:11 Admitted to Med/surg accompanied by nurse, via stretcher, room 216, [facility] 02:11 Condition: stable 02:11 Discharge instructions given to family, Instructed on the need for admit, Demonstrated understanding of instructions. 02:15 Patient left the ED. lg3 NIH Stroke Scale - NIH Stroke Score Date: 05/28/2023 Time: 21:41 Total Score = 18 10. Dysarthria (speech clarity - read or repeat words) - 1(Mild to Moderate) 11. Extinction and Inattention (visual/tactile/auditory/spatial/personal) - 1(Present) 1a. Level of Consciousness (LOC) - 0(Alert) 1b. Level of Consciousness (LOC) (Month \T\ Age) - 2(Neither) 1c. LOC Commands (Open \T\ Closes Eyes/Hearing Aid Consultant) - 2(Neither) 2. Best Gaze (Lateral Gaze Paresis) - 0(Normal) 3. Visual Field Loss - 0(No visual loss) 4. Facial Palsy - 2(Partial paralysis) 5a. Left Arm: Motor (10-second hold) - 0(No drift) 5b. Right Arm: Motor (10-second hold) - 4(No movement) 6a. Left Leg: Motor (5-second hold - always test supine) - 0(No drift) 6b. Right Leg: Motor (5-second hold - always test supine) - 4(No movement) 7. Limb Ataxia (finger/nose \T\ heel/sorenson - test with eyes open) - 0(Absent) 8. Sensory Loss (pinprick arms/legs/face) - 1(Mild to moderate loss) 9. Best Language: Aphasia (description/naming/reading) - 1(Mild to moderate aphasia) Initials: rv Signatures: Dispatcher [employer] EDMS Ricco Mazariegos, APPLICATIONS TESTER-C APPLICATIONS TESTER-Cla1 Ramo Osorio Ronaldo, RN RN rv Diamante Bond, COREY RN lg3 Amanda Ray RN RN kd3 Kathie Ramírez, RADUC PA-C sb4 Iam Gay MD MD sp4
--- NOTE | 2023-05-29 01:07 | EDPHYS ---
Physician Documentation [facility] Name: Yanira Chavira Age: 88 yrs Sex: Female : 1935 Arrival Date: 05/28/2023 Time: 21:20 Bed 4 Private MD: ED Physician Iam Gay HPI: 05/28 21:22 This 88 yrs old Female presents to ER via Unassigned with complaints of facial sp4 tremors . 21:23 88-year-old female presents with EMS for reported right facial twitching and tremors. sp4 Patient has history of prior CVA. Patient takes Eliquis 2.5 mg twice a day. Atorvastatin 80 mg, Centrum and also metformin. 21:33 88-year-old female with a history of diabetes mellitus, CVA, and prolonged immobility, sp4 presents from home with EMS for acute tremors that started on the right side of her face with generalized spread to the rest of the patient's body, patient's family states that they also perceived acute transient arm weakness altogether starting about 2 and half hours prior to arrival. Based on patient's medication record patient takes Eliquis 2.5 mg twice a day. At this time tPA is contraindicated. . Historical: - Allergies: 21:24 Unable to obtain; lg3 - Home Meds: 21:24 Eliquis 2.5 mg Oral tab [Active]; metformin 850 mg Oral tab [Active]; atorvastatin 80 lg3 mg Oral tab [Active]; multivitamin Oral [Active]; - PMHx: 21:24 TIA; CVA; Diabetes mellitus; lg3 - PSHx: 21:24 Unable to Obtain; lg3 - Immunization history:: Adult Immunizations unknown. - Social history:: Smoking status: unknown. - Family history:: not pertinent. ROS: 21:33 Constitutional: Negative for fever, chills, and weight loss. sp4 21:33 Unable to obtain ROS due to altered mental status, Additional review of systems is not available secondary to dementia. Exam: 21:33 Constitutional: This is a well developed, frail elderly female presents with EMS with sp4 signs of advanced dementia and prolonged immobility. Patient has facial tremors particularly centered around right periorbital area. Tremors are also manifesting diffusely as well. Patient has right lower extremity swelling from persistent immobility. Patient is reported to be nonambulatory Head/Face: Normocephalic, atraumatic. Eyes: Pupils equal round and reactive to light, extra-ocular motions intact. Lids and lashes normal. Conjunctiva and sclera are not injected. Cornea within normal limits. Periorbital areas with no swelling, redness, or edema. ENT: Nares patent. No nasal discharge, no septal abnormalities noted. Tympanic membranes are normal and external auditory canals are clear. Oropharynx with no redness, swelling, or masses, exudates, or evidence of obstruction, uvula midline. Mucous membranes moist. Neck: Trachea midline, no thyromegaly or masses palpated, and no cervical lymphadenopathy. Supple, full range of motion without nuchal rigidity, or vertebral point tenderness. Chest/axilla: Normal chest wall appearance and motion. Nontender with no deformity. No lesions are appreciated. Cardiovascular: Regular rate and rhythm with a normal S1 and S2. No gallops, murmurs, or rubs. Normal PMI, no JVD. No pulse deficits. Respiratory: Lungs have equal breath sounds bilaterally, clear to auscultation and percussion. No rales, rhonchi or wheezes noted. No increased work of breathing, no retractions or nasal flaring. Abdomen/GI: Soft, non-tender, with normal bowel sounds. No distension or tympany. No guarding or rebound. No evidence of tenderness throughout. Back: No spinal tenderness. No costovertebral tenderness. Female : Normal external genitalia. Skin: Warm, dry with normal turgor. Normal color with no rashes, no lesions, and no evidence of cellulitis. MS/ Extremity: Pulses equal, no cyanosis. Bilateral lower extremity weakness secondary to prolonged immobility, generalized weakness, exam is limited secondary to dementia, patient not able to cooperate Neuro: Awake and alert, oriented to self only. Exam limited secondary to dementia. Patient not able to cooperate. Generalized tremors present on arrival 05/29 00:22 ECG was reviewed by the Attending Physician. EKG at [id number] 2022 -revealed junctional sp4 rhythm at the rate of 95, termed as accelerated junctional rhythm. Prolonged QT otherwise no ST elevation or depression, no ventricular ectopy Vital Signs: 05/28 21:22 BP 127 / 49; Pulse 68; Resp 19 S; Pulse Ox 97% on R/A; Weight 106 kg (M); lg3 21:58 BP 146 / 55; Pulse 95; Resp 19 S; Pulse Ox 100% on R/A; lg3 23:06 BP 137 / 72; Pulse 89; Resp 16 S; Pulse Ox 99% on R/A; lg3 05/29 01:59 BP 147 / 72; Pulse 88; Resp 17 S; Pulse Ox 100% on R/A; kd3 NIH Stroke Scale Scores: 05/28 21:41 NIHSS Score: 18 rv Cristiana Coma Score: 21:33 Eye Response: spontaneous(4). Motor Response: obeys commands(6). Verbal Response: sp4 inappropriate words(3). Total: 13. MDM: 22:33 Patient medically screened. sp4 23:53 Differential Diagnosis altered mental status, sepsis, flu. Data reviewed: vital signs, sp4 nurses notes, EMS record, old medical records, lab test result(s), cardiac enzymes, CBC, electrolytes, Flu: hepatic panel, urinalysis, EKG, radiologic studies, CT scan, plain films. 05/29 00:06 Consideration of Admission/Observation Patient was admitted/placed on observation. sp4 Escalation of care including admission/observation considered. Management of patient was discussed with the following: Hospitalist: Admission team . ED course: Patient's overall has a declining physical status. There is moderate-sized bilateral pleural effusions found on CT of the head and neck. Patient manifested with vomiting in the emergency room patient also has lactic acidosis with lactic acid 6.5. There is significant urinary tract infection, probably pyelonephritis, elevated blood sugar 166, hemoglobin 10.7, no leukocytosis, elevated LFTs that are mild, . ED course: EXAM DESCRIPTION: Vikram Single View05/28/2023 10:10 pm CLINICAL HISTORY: Right-sided weakness/slurred speech COMPARISON: none FINDINGS: Opacification mid and lower right hemithorax. Small left pleural effusion suspected. Mild left lung opacities Heart is mildly to moderately enlarged IMPRESSION: Opacification mid and lower right hemithorax may represent a combination of pleural effusion and pneumonia or atelectasis. CT Small left pleural effusion probably is present. Mild left lung opacities may represent pulmonary edema or pneumonia. 00:08 ED course: EXAM DESCRIPTION: CT - Ct Stroke Brain Wo Cont - 05/28/2023 9:28 pm CLINICAL sp4 HISTORY: Right-sided weakness COMPARISON: Not available TECHNIQUE: Computed axial tomography of the head was obtained. All CT scans are performed using dose optimization technique as appropriate and may include automated exposure control or mA/KV adjustment according to patient size. FINDINGS: An intracranial bleed is not seen . The ventricles are normal in caliber. No extra-axial fluid collection is noted. Moderate low-density left cerebrum compatible with old infarction. Mild low-density areas periventricular and deep white matter ischemic changes secondary to small vessel disease Fluid within the sinuses/ mastoids is not seen. IMPRESSION: No acute intracranial abnormality is seen. If patient's symptoms persist MRI of the brain would be recommended. 01:03 ED course: Neck: ICA: No occlusion or significant stenosis. No aneurysm. No dissection. sp4 ECA: Atherosclerotic plaque at the origin of the right external carotid artery with no significant stenosis. CCA: No occlusion or significant stenosis. No aneurysm. No dissection. Aortic arch: No aneurysm. No dissection. Vertebral arteries: No occlusion or significant stenosis. No aneurysm. No dissection. Dominant left vertebral artery. Brain: No focal mass effect. No areas of abnormal parenchymal enhancement. Chronic left parietal infarction Bones: Unremarkable Soft tissues: Unremarkable Lung apices: Partially visualized large bilateral pleural effusions. Dilated visualized proximal esophagus with large amount of retained intraluminal particulate material which may represent prominent gastroesophageal reflux or esophageal dysmotility. Questionable thickening of the esophagus, esophageal mass cannot be excluded. Further evaluation recommended with esophagram. IMPRESSION: 1. No significant stenosis, occlusion, or dissection of the major arterial structures of the head and neck. 2. Dilatation of supraclinoid left ICA with no focal aneurysm. 3. Partially visualized large bilateral pleural effusions. 4. Dilated visualized proximal esophagus with large amount of retained intraluminal particulate material which may represent prominent gastroesophageal reflux or esophageal dysmotility. Questionable thickening of the esophagus, esophageal mass cannot be excluded. Further evaluation recommended with esophagram. . 01:21 ED course: EXAM DESCRIPTION: Chest Single View CLINICAL HISTORY: 88 years Female, CHEST sp4 PAIN TECHNIQUE: 1 view (Single frontal view of the chest) COMPARISON: None. FINDINGS: Moderate rightward patient rotation. LINES AND TUBES: Implantable loop recorder in place. CARDIOVASCULAR STRUCTURES: Cardiomegaly. Mild pulmonary venous congestion. LUNGS: Bilateral lower lobe atelectasis. PLEURA: Moderate size bilateral pleural effusions. No pneumothorax. BONES: Senescent osseous changes. No acute osseous abnormality of the thorax. IMPRESSION: 1. Cardiomegaly, mild pulmonary venous congestion, moderate size bilateral pleural effusions. 2. Bilateral lower lobe atelectasis. . 05/28 21:23 Order name: Basic Metabolic Panel; Complete Time: 22: sp4 05/28 21:23 Order name: CBC with Diff; Complete Time: 22: sp4 05/28 21:23 Order name: Hepatic Function; Complete Time: : sp4 05/28 21:23 Order name: High Sensitivity Troponin; Complete Time: : sp4 05/28 21:23 Order name: Magnesium; Complete Time: : sp4 05/28 21:23 Order name: Protime (+inr); Complete Time: 23: sp4 05/28 21:23 Order name: Ptt, Activated; Complete Time: 23: sp4 05/28 21:28 Order name: Finger stick results - FOR PT WITH NO ID; Complete Time: 23: kd3 05/28 21:29 Order name: Lactate w/ 2H reflex if indic.; Complete Time: 23: sp4 05/28 21:29 Order name: Urinalysis w/ reflexes; Complete Time: 22: sp4 05/28 21:29 Order name: Blood Culture Adult (2) 4 05/28 21:30 Order name: SARS RAPID; Complete Time: 23: sp4 05/28 21:30 Order name: Influenza Screen (a \T\ B); Complete Time: 23: 4 05/28 22:10 Order name: C-Reactive Protein; Complete Time: 22:26 EDMS 05/28 22:23 Order name: Urine Culture EDCA 05/28 23:50 Order name: BNP; Complete Time: 01:07 sp4 05/28 23:51 Order name: Troponin HS; Complete Time: 01:07 sp4 05/28 21:23 Order name: CT Stroke Brain w/o Contrast; Complete Time: 22:26 sp4 05/28 21:23 Order name: Stroke CXR 1 View; Complete Time: 22:33 sp4 05/28 22:27 Order name: CT Head Angio sp4 05/28 22:28 Order name: CT Neck Angio 4 05/28 23:40 Order name: Chest Single View XRAY sp4 05/28 21:23 Order name: EKG; Complete Time: 21:24 sp4 05/28 21:23 Order name: Accucheck; Complete Time: : sp4 05/28 21:23 Order name: Cardiac monitoring; Complete Time: 21: sp4 05/28 21:23 Order name: EKG - Nurse/Tech; Complete Time: 21: sp4 05/28 21:23 Order name: IV Saline Lock; Complete Time: 21: sp4 05/28 21:23 Order name: Labs collected and sent; Complete Time: 21: sp4 05/28 21:23 Order name: NPO; Complete Time: 21: sp4 05/28 21:23 Order name: O2 Per Protocol; Complete Time: : sp4 05/28 21:23 Order name: O2 Sat Monitoring; Complete Time: : sp4 05/28 21:23 Order name: Stroke Swallow Screen; Complete Time: 21:38 sp4 05/28 21:29 Order name: Maxwell; Complete Time: 21:43 sp4 EC:22 Rate is 95 beats/min. Rhythm is regular, Junctional rhythm. QRS Anabel is Normal. QRS sp4 interval is normal. QT interval is prolonged. Clinical impression: No evidence of ischemia. Interpreted by me. Administered Medications: 05/28 21:37 Drug: Ativan IVP 1 mg Route: IVP; Site: left antecubital; formerly [facility] 05/29 02:02 Follow up: Response: No adverse reaction 3 05/28 21:37 Drug: NS 0.9% IV 1000 ml Route: IV; Rate: 75 ml/hr; Site: left antecubital; 3 05/29 02:15 Follow up: IV Status: Infusion continued upon admission formerly [facility] 05/28 23:06 Drug: Piperacillin-Tazobactam IVPB 3.375 grams Route: IVPB; Infused Over: 60 mins; lg3 Site: right forearm; 05/29 02:01 Follow up: IV Status: Completed infusion; IV Intake: 100ml [facility] 05/28 23:49 CANCELLED (Inappropriate at this time): Cephalexin PO 500 mg PO once 3 05/29 00:15 Drug: Ondansetron IVP 4 mg Route: IVP; Site: right forearm; 02:01 Follow up: Response: No adverse reaction kd3 00:27 Drug: Albumin IVPB 25 grams Volume: 100 ml; Route: IVPB; Site: right forearm; rv 02:01 Follow up: IV Status: Completed infusion kd3 00:35 Drug: morphine IVP or IV 1 mg Route: IVP; Infused Over: 2 mins; Site: left antecubital; rv 02:01 Follow up: Response: No adverse reaction kd3 02:01 Not Given (Physician Discretion): Aspirin PO Chewable Tablet 324 mg PO once; 81 mg kd3 tablets x 4 Disposition Summary: 05/29/23 01:06 Hospitalization Ordered Hospitalization Status: Inpatient Admission sp4 Location: Telemetry/[facility]Sur (Inpatient) sp4 Condition: Serious sp4 Problem: new sp4 Symptoms: have improved sp4 Bed/Room Type: Standard sp4 Provider: Frank Odonnell(05/29/23 01:06) bruce Room Assignment: 216(05/29/23 01:56) Diagnosis - Pyelonephritis acute sp4 - Bilateral pleural effusions, lactic acidosis, immobility complications, bilateral sp4 atelectasis, acute generalized tremors, generalized weakness, hyperglycemia, hypoalbuminemia Forms: - Medication Reconciliation Form sp4 - SBAR form sp4 NIH Stroke Scale - NIH Stroke Score Date: 05/28/2023 Time: 21:41 Total Score = 18 10. Dysarthria (speech clarity - read or repeat words) - 1(Mild to Moderate) 11. Extinction and Inattention (visual/tactile/auditory/spatial/personal) - 1(Present) 1a. Level of Consciousness (LOC) - 0(Alert) 1b. Level of Consciousness (LOC) (Month \T\ Age) - 2(Neither) 1c. LOC Commands (Open \T\ Closes Eyes/Instrumentation Specialist) - 2(Neither) 2. Best Gaze (Lateral Gaze Paresis) - 0(Normal) 3. Visual Field Loss - 0(No visual loss) 4. Facial Palsy - 2(Partial paralysis) 5a. Left Arm: Motor (10-second hold) - 0(No drift) 5b. Right Arm: Motor (10-second hold) - 4(No movement) 6a. Left Leg: Motor (5-second hold - always test supine) - 0(No drift) 6b. Right Leg: Motor (5-second hold - always test supine) - 4(No movement) 7. Limb Ataxia (finger/nose \T\ heel/sorenson - test with eyes open) - 0(Absent) 8. Sensory Loss (pinprick arms/legs/face) - 1(Mild to moderate loss) 9. Best Language: Aphasia (description/naming/reading) - 1(Mild to moderate aphasia) Initials: rv Signatures: Dispatcher [employer] EDMS Ricco Mazariegos, BRAKE TESTER-C BRAKE TESTER-Cla1 Allison Pierre, RN RN cg Apolinar Beasley RN RN rv Gibson, Lacie, COREY RN lg3 Iam Gay MD MD sp4 Amanda Ray RN kd3 Corrections: (The following items were deleted from the chart) 05/28 22:10 21:30 C-REACTIVE PROTEIN+C.LAB.BRZ ordered. EDMS EDMS 23:49 23:13 Cephalexin PO 500 mg PO once ordered. sp4 lg3 05/29 01:06 01:06 Kwan Zaragoza sp4 la1 01:56 01:06 sp4
--- NOTE | 2023-05-29 02:15 | P.HP ---
Certification for Inpatient Patient admitted to: Inpatient With expected LOS: >2 Midnights Patient will require the following post-hospital care: None Practitioner: I am a practitioner with admitting privileges, knowledge of patient current condition, hospital course, and medical plan of care. Services: Services provided to patient in accordance with Admission requirements found in Title 42 Section 412.3 of the Code of Federal Regulations Patient History Date of Service: 05/29/23 Reason for admission: UTI History of Present Illness: 88-year-old female with history of CVA, diabetes, hyperlipidemia presents to the emergency department with chief complaint general weakness, facial [id number] which began around 1900. Patient is on daily Eliquis 2.5 mg twice daily with previous CVA is not a candidate for TNK. CT head was negative for acute findings CTA of the head and neck was also performed which was negative for LVO, does note partially visualized large bilateral pleural effusions, dilated visualized proximal esophagus with large amount of retained intraluminal particulate material which may represent prominent gastroesophageal reflux or esophageal dysmotility. Questionable thickening of the esophagus, esophageal mass not excluded. Chest x-ray shows cardiomegaly, mild pulmonary venous congestion, moderate-sized bilateral pleural effusions. Bilateral lower lobe atelectasis. Urinalysis showed UTI, other lab significant for glucose 166 AST 62 ALT 66 ALK 124 albumin 2.6 lactic acid 6.5 BNP 771 high-sensitivity opponent 172.4 ED physician discussed case at length with family initially recommended transfer as we do not have neurology available or Clinical Lab Technologist with patient presenting with concern for CVA as well as NSTEMI. Family declined transfer does not want any aggressive measures including central line, intubation, chest compressions, defibrillation, would not want a heart catheterization or any other major procedures. She was given IV antibioticsZosyn as well as gentle IV fluids. She has a history of previous CVA with significant dementia which has been worsening over time, diet also poor recently. I had a long discussion with the patient's family regarding goals of care, they want again only conservative measures, IV fluids, IV antibiotics and are open to the discussion of patient being discharged to hospice. Only SIRS criteria present is heart rate greater than 95, does not currently meet criteria for septic shock. Allergies No Known Allergies Allergy (Verified 06/14/22 16:29) Home Medications: Apixaban [Eliquis *] 2.5 mg PO BID 06/14/22 Atorvastatin Calcium [Lipitor] 80 mg PO BEDTIME 06/14/22 Furosemide [Lasix*] 20 mg PO DAILY 06/14/22 Metformin HCl [Glucophage*] 850 mg PO BEDTIME 06/14/22 Multivitamin 1 each PO DAILY 06/14/22 Potassium Chloride [Klor-Con M10] 10 meq PO DAILY 06/14/22 - Past Medical/Surgical History -: Diabetes mellitus type 2 -: CVA -: Hyperlipidemia Past Surgical History: Unable to obtain Psychosocial/ Personal History: Patient lives at home with her family who help care for her - Family History Family History: Reviewed- Non-Contributory - Social History Place of Residence: Home Review of Systems is unable to be obtained Physical Examination - Physical Exam General: Alert, In no apparent distress, Demented HEENT: Atraumatic, PERRLA, Mucous membr. moist/pink, EOMI, Sclerae nonicteric Neck: Supple, 2+ carotid pulse no bruit, No LAD, Without JVD or thyroid abnormality Respiratory: Diminished, Crackles/rales Cardiovascular: Regular rate/rhythm, Normal S1 S2, Edema Capillary refill: <2 Seconds Gastrointestinal: Normal bowel sounds, No tenderness Musculoskeletal: No tenderness Integumentary: No rashes Neurological: Other (Moves all extremities, cannot comply with exam) - Studies Laboratory Data (last 24 hrs) 05/28/23 21:23: PT 14.7 H, INR 1.34, APTT 32.1 05/28/23 21:23: WBC 6.90, Hgb 10.7 L, Hct 32.3 L, Plt Count 186 05/28/23 21:23: Sodium 138, Potassium 4.3, BUN 17, Creatinine 0.69, Glucose 166 H, Magnesium 1.9, Total Bilirubin 0.4, AST 62 H, ALT 66 H, Alkaline Phosphatase 124 H Microbiology Data (last 24 hrs): 05/28/23 01:00 Nasopharnyx Influenza Type A Antigen Screen - Final 05/28/23 01:00 Nasopharnyx Influenza Type B Antigen Screen - Final Assessment and Plan - Plan Assessment: UTI Metabolic encephalopathy Acute decompensated heart failureunknown EF NSTEMI Lactic acidosis Elevated LFTs Diabetes mellitus type [id number] History of CVA/dementia Hyperlipidemia Plan: UTI Blood and urine cultures obtained, continue IV antibioticsRocephin. Only SIRS criteria present is heart rate greater than 90, does not currently meet criteria for septic shock although her lactate is greater than 4. She did not receive 30 cc/kg IV fluid bolus because she is noted to have large pleural effusions on her CT scan as well as edema of the lower extremities concern for acute decompensated heart failure. Discussed plan of care at length with family, patient likely hospice appropriate, hospice social worker consult in place to discuss hospice further. Metabolic encephalopathy Family reports patient has been getting worse as far as her cognition goes over the course of the last few weeks, significantly worse this evening likely component of metabolic encephalopathy related to urinary tract infection as well as advanced/worsening dementia. Will consider MRI although this is not likely to change plan of care currently. Acute decompensated heart failureunknown EF Obtain echocardiogram, will hold off on diuresis until clinical picture is more clear regards to infection/UTI/lactic acidosis NSTEMI Trend troponins, obtain echocardiogram, monitor on telemetry. Family reports they would not want her to undergo a heart catheterization. Continue Eliquis. Lactic acidosis Unclear etiology, possibly related to infection, decompensated heart failure, consideration for metformin associated lactic acidosis although there does not appear to be an associated metabolic acidosis. Given gentle IV fluids in ED, will recheck lactate. Elevated LFTs Patient has had previous cholecystectomy. Mild elevations, monitor daily. Diabetes mellitus type [id number] ACHS Accu-Chek, sliding scale insulin. History of CVA/dementia Noted, continue home medications. Hyperlipidemia Hold statin in setting of elevated LFT. DVT PPX: Eliquis Code status: DNR Discharge Plan: Home Plan to discharge in: 48 Hours - Advance Directives Does patient have a Living Will: No Does patient have a Durable POA for Healthcare: No - Code Status/Comfort Care Code Status Assessed: Yes (DNR) Critical Care: No Time Spent Managing Pts Care (In Minutes): 70
[2023-05-29] MEDS ORDERED: MELATONIN 5 MG TABLET PO PRN (02:34)
[2023-05-29] MEDS ORDERED: ONDANSETRON 4 MG/2 ML VIAL IV PRN (02:34)
[2023-05-29] MEDS ORDERED: ACETAMINOPHEN 500 MG TAB PO PRN (02:34)
[2023-05-29] MEDS: NA CHLORIDE 0.9% 1,000 ML IV SCH ×2 (02:47→17:08)
[2023-05-29 03:40] VITALS: BMI 19.5
[2023-05-29 04:22] VITALS: O2SAT 98
[2023-05-29] MEDS: INSULIN -REGULAR HUMAN 50 UNIT/0.5 ML ML SQ SCH ×3 (07:30→16:30)
[2023-05-29] MEDS ORDERED: CEFTRIAXONE 1,000 MG in NA CHLORIDE 0.9% 50 ML IVPB SCH (09:00)
[2023-05-29] MEDS ORDERED: ASPIRIN EC 81 MG TAB PO SCH (09:00)
[2023-05-29] MEDS ORDERED: APIXABAN 2.5 MG TABLET PO SCH (09:00)
[2023-05-29 09:06] LABS: Absolute Lymphocytes (CBC) 1.5 K/uL (0.7-4.9); Hematocrit 25.6 % (36.0-45.0); Lymphocytes % 29.8 % (15.3-44.8); MCV 99.7 fL (80-100); MPV 8.1 fL (7.6-11.3); RBC Red Blood Cell Count 2.57 M/uL (3.86-4.86)
[2023-05-29 09:41] LABS: Albumin 2.6 g/dL (3.4-5.0); Bilirubin Total 0.5 mg/dL (0.2-1.0); Potassium 3.6 mEq/L (3.5-5.1); Protein, Total 4.9 g/dL (6.4-8.2)
[2023-05-29 09:44] LABS: Thyroid Stimulating Hormone 4.74 uIU/mL (0.358-3.740)
[2023-05-29 09:46] LABS: Troponin High Sensitivity 1187.2 pg/mL (<58.9)
--- NOTE | 2023-05-29 12:13 | EKG ---
Test Date: 2023-05-29 Test Time: 00:08:14 Pst Manager: NATASHA MEASUREMENT RESULTS: Intervals: Rate: 95 NJ: QRSD: 76 QT: 376 QTc: 472 Mcbrides: P: NJ: QRS: 12 T: 216 INTERPRETIVE STATEMENTS: Normal sinus rhythm Low voltage QRS ST & T wave abnormality, consider anterolateral ischemia Prolonged QT Abnormal ECG No previous ECG available for comparison Electronically Signed On 05-29-23 12:12:25 CDT by Harrison Gerard
--- NOTE | 2023-05-29 12:14 | EKG ---
Test Date: 2023-05-28 Test Time: 21:25:44 Chairman And Ceo: RV MEASUREMENT RESULTS: Intervals: Rate: 99 ID: QRSD: 70 QT: 144 QTc: 184 Letona: P: ID: QRS: 54 T: 0 INTERPRETIVE STATEMENTS: Sinus rhythm Nonspecific T wave abnormality Abnormal ECG No previous ECG available for comparison Electronically Signed On 05-29-23 12:12:47 CDT by Harrison Gerard
[2023-05-29 16:43] VITALS: BP 155/68; TEMP 97
--- NOTE | 2023-05-29 17:12 | P.DS ---
Admission Date: 05/29/23 Discharge Date: 05/29/23 Disposition: HOSPICE-HOME Discharge Condition: FAIR Reason for Admission: UTI Consultations: 1. Cardiology Hospital Course: DIAGNOSES: # Acute Toxic Metabolic Encephalopathy on Advanced Alzheimer's Dementia # Non-ST Segment Elevation Myocardial Infarction # Acute Decompensated Congestive Heart Failure with an Unknown Ejection Fraction # Possible Aspiration Pneumonia with Bilateral Large Pleural Effusions # Retained Esophageal Intraluminal Particulate - cannot exclude Esophageal Mass # Urinary Tract Infection # Lactic Acidosis possibly due to Metformin - resolved # Type II Diabetes Mellitus # History of Cerebrovascular Accident # Hypertension # Hyperlipidemia # Elevated LFTs HOSPITAL COURSE: Ms. Yanira Chavira is an 88-year-old female with a past medical history significant for advanced Alzheimer's dementia, type 2 diabetes mellitus, history of cerebrovascular accident, hypertension, and hyperlipidemia who was admitted to the [facility] on 05/29/2023 for altered mental status. She was admitted to the Medicine service. Upon further evaluation, her CT head revealed, "no acute intracranial abnormality is seen." Her chest x-ray revealed, "opacification mid and lower right hemithorax may represent a combination of pleural effusion and pneumonia or atelectasis. CT Small left pleural effusion probably is present. Mild left lung opacities may represent pulmonary edema or pneumonia." Her CT head/neck angiogram revealed, "1. No significant stenosis, occlusion, or dissection of the major arterial structures of the head and neck. 2. Dilatation of supraclinoid left ICA with no focal aneurysm. 3. Partially visualized large bilateral pleural effusions. 4. Dilated visualized proximal esophagus with large amount of retained intraluminal particulate material which may represent prominent gastroesophageal reflux or esophageal dysmotility. Questionable thickening of the esophagus, esophageal mass cannot be excluded. Further evaluation recommended with esophagram." Her CT chest revealed, "1. Cardiomegaly, mild pulmonary venous congestion, moderate-sized bilateral pleural effusions 2. Bilateral lower lobe atelectasis." Upon further discussion with her family at bedside, it became apparent that she would not want any aggressive measures performed. I had an extensive goals of care discussion with her family. Bedside nurse, COREY Randall, and social sciences professor, Beba, were present for this discussion. We reviewed different types of medical management including diseasedirected therapy versus comfort care/symptomdirected management. We discussed the risks/benefits of therapies such as thoracentesis, cardiac catheterization, and PEG tube placement. Her family indicated that she would not wish to have any surgeries or procedures performed. After thorough discussion, family stated that hospice/comfort care was most consistent with her wishes. With the assistance of case management, she was accepted for home hospice services. On 05/29/2023, she was seen on rounds. Her family members were given the opportunity to ask questions and reported no further questions. Furthermore, all questions were answered to the best of my ability. Today, I personally spent 35 minutes on her case, of which greater than 50% of the time was spent in patient education, counseling, and coordination of care as described above. Vital Signs/Physical Exam: Temp Pulse Resp BP Pulse Ox 97.0 F 74 15 155/68 H 96 05/29/23 16:00 05/29/23 16:00 05/29/23 16:00 05/29/23 16:00 05/29/23 16:00 General: In no apparent distress, Demented HEENT: Atraumatic, Sclerae nonicteric Neck: JVD not distended Respiratory: Diminished, Rhonchi/gurgles (scattered) Cardiovascular: No edema, Regular rate/rhythm, Normal S1 S2, No gallops, No rubs, No murmurs Gastrointestinal: Normal bowel sounds, Soft and benign, Non-distended, No tenderness, No rebound, No guarding Musculoskeletal: No clubbing Integumentary: No rashes Neurological: Normal speech, Normal affect Laboratory Data at Discharge: WBC 5.10 thou/uL (4.3-10.9) 05/29/23 08:37 Hgb 8.4 g/dL (12.0-15.0) L D 05/29/23 08:37 Hct 25.6 % (36.0-45.0) L 05/29/23 08:37 Plt Count 156 thou/uL (152-406) 05/29/23 08:37 PT 14.7 SECONDS (9.5-12.5) H 05/28/23 21:23 INR 1.34 05/28/23 21:23 APTT 32.1 SECONDS (24.3-36.9) 05/28/23 21:23 Sodium 137 mEq/L (136-145) 05/29/23 08:37 Potassium 3.6 mEq/L (3.5-5.1) D 05/29/23 08:37 BUN 19 mg/dL (7-18) H 05/29/23 08:37 Creatinine 0.45 mg/dL (0.55-1.02) L 05/29/23 08:37 Glucose 134 mg/dL (74-106) H 05/29/23 08:37 Magnesium 1.9 mg/dL (1.6-2.4) 05/28/23 21:23 Total Bilirubin 0.5 mg/dL (0.2-1.0) 05/29/23 08:37 AST 45 U/L (15-37) H 05/29/23 08:37 ALT 47 U/L (13-56) 05/29/23 08:37 Alkaline Phosphatase 90 U/L (45-117) D 05/29/23 08:37 Home Medications: Apixaban [Eliquis *] 2.5 mg PO BID 06/14/22 Atorvastatin Calcium [Lipitor] 80 mg PO BEDTIME 06/14/22 Metformin HCl [Glucophage*] 850 mg PO BEDTIME 06/14/22 Multivitamin 1 each PO DAILY 06/14/22 Mirtazapine [Remeron] 15 mg PO BEDTIME 05/29/23 Physician Discharge Instructions: - Continue care with Hospice Care Team Diet: comfort Activity: Fall precautions Time spent managing pt's care (in minutes): 35
--- NOTE | 2023-05-29 20:26 | RAD REPORT ---
EXAM DESCRIPTION: Head angio (accession [id number]), Neck Angio (accession [id number]) CLINICAL HISTORY: Gen weakness COMPARISON: None available for comparison TECHNIQUE: Contiguous axial images obtained through the head and neck following the uneventful admin istration of IV contrast. Sagittal and coronal reformatted images were provided. Multiplanar 3-D MIP reformatted images were provided. NASCET criteria utilized for the evaluation of any stenotic lesions . This exam was performed according to our departmental dose-optimization program, which includes autom ated exposure control, adjustment of the mA and/or kV according to patient size and/or use of iterati ve reconstruction technique. FINDINGS: Head: ICA: Calcified plaque along the course of the cavernous intracranial internal carotid arteries with n o significant stenosis. Dilatation of the supraclinoid left ICA with no focal aneurysm. ESTHER: No occlusion or significant stenosis. No aneurysm. No dissection. 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 No aneurysm. No dissection. DRAIN CLEANER PLUMBER: No occlusion or significant stenosis. No aneurysm. No dissection. Basilar artery: No occlusion or significant stenosis. No aneurysm. No dissection. Neck: ICA: No occlusion or significant stenosis. No aneurysm. No dissection. ECA: Atherosclerotic plaque at the origin of the right external carotid artery with no significant st enosis. CCA: No occlusion or significant stenosis. No aneurysm. No dissection. Aortic arch: No aneurysm. No dissection. Vertebral arteries: No occlusion or significant stenosis. No aneurysm. No dissection. Dominant left v ertebral artery. Brain: No focal mass effect. No areas of abnormal parenchymal enhancement. Chronic left parietal infa rction Bones: Unremarkable Soft tissues: Unremarkable Lung apices: Partially visualized large bilateral pleural effusions. Dilated visualized proximal esophagus with large amount of retained intraluminal particulate material which may represent prominent gastroesophageal reflux or esophageal dysmotility. Questionable thicke lennie of the esophagus, esophageal mass cannot be excluded. Further evaluation recommended with esopha gram. IMPRESSION: 1. No significant stenosis, occlusion, or dissection of the major arterial structures of the head and neck. 2. Dilatation of supraclinoid left ICA with no focal aneurysm. 3. Partially visualized large bilateral pleural effusions. 4. Dilated visualized proximal esophagus with large amount of retained intraluminal particulate mat erial which may represent prominent gastroesophageal reflux or esophageal dysmotility. Questionable t hickening of the esophagus, esophageal mass cannot be excluded. Further evaluation recommended with cristian moe. Electronically signed by: Alen Pro MD 05/29/2023 12:43 AM CDT Due to temporary technical issues with the PACS/Fluency reporting system, reports are being signed by the in house radiologists without review as a courtesy to insure prompt reporting. The interpreting radiologist is fully responsible for the content of the report.
--- NOTE | 2023-05-29 20:28 | RAD REPORT ---
EXAM DESCRIPTION: Chest Single View CLINICAL HISTORY: 88 years Female, CHEST PAIN TECHNIQUE: 1 view (Single frontal view of the chest) COMPARISON: None. FINDINGS: Moderate rightward patient rotation. LINES AND TUBES: Implantable loop recorder in place. CARDIOVASCULAR STRUCTURES: Cardiomegaly. Mild pulmonary venous congestion. LUNGS: Bilateral lower lobe atelectasis. PLEURA: Moderate size bilateral pleural effusions. No pneumothorax. BONES: Senescent osseous changes. No acute osseous abnormality of the thorax. IMPRESSION: 1. Cardiomegaly, mild pulmonary venous congestion, moderate size bilateral pleural eff usions. 2. Bilateral lower lobe atelectasis. Electronically signed by: Ridge Alonso MD 05/29/2023 12:58 AM CDT Due to temporary technical issues with the PACS/Fluency reporting system, reports are being signed by the in house radiologists without review as a courtesy to insure prompt reporting. The interpreting radiologist is fully responsible for the content of the report.
--- NOTE | 2023-05-29 20:31 | RAD REPORT ---
EXAM DESCRIPTION: Head angio (accession [id number]), Neck Angio (accession [id number]) CLINICAL HISTORY: Gen weakness COMPARISON: None available for comparison TECHNIQUE: Contiguous axial images obtained through the head and neck following the uneventful admin istration of IV contrast. Sagittal and coronal reformatted images were provided. Multiplanar 3-D MIP reformatted images were provided. NASCET criteria utilized for the evaluation of any stenotic lesions . This exam was performed according to our departmental dose-optimization program, which includes autom ated exposure control, adjustment of the mA and/or kV according to patient size and/or use of iterati ve reconstruction technique. FINDINGS: Head: ICA: Calcified plaque along the course of the cavernous intracranial internal carotid arteries with n o significant stenosis. Dilatation of the supraclinoid left ICA with no focal aneurysm. ESTHER: No occlusion or significant stenosis. No aneurysm. No dissection. 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 No aneurysm. No dissection. DRYERMAN/WOMAN: No occlusion or significant stenosis. No aneurysm. No dissection. Basilar artery: No occlusion or significant stenosis. No aneurysm. No dissection. Neck: ICA: No occlusion or significant stenosis. No aneurysm. No dissection. ECA: Atherosclerotic plaque at the origin of the right external carotid artery with no significant st enosis. CCA: No occlusion or significant stenosis. No aneurysm. No dissection. Aortic arch: No aneurysm. No dissection. Vertebral arteries: No occlusion or significant stenosis. No aneurysm. No dissection. Dominant left v ertebral artery. Brain: No focal mass effect. No areas of abnormal parenchymal enhancement. Chronic left parietal infa rction Bones: Unremarkable Soft tissues: Unremarkable Lung apices: Partially visualized large bilateral pleural effusions. Dilated visualized proximal esophagus with large amount of retained intraluminal particulate material which may represent prominent gastroesophageal reflux or esophageal dysmotility. Questionable thicke lennie of the esophagus, esophageal mass cannot be excluded. Further evaluation recommended with esopha gram. IMPRESSION: 1. No significant stenosis, occlusion, or dissection of the major arterial structures of the head and neck. 2. Dilatation of supraclinoid left ICA with no focal aneurysm. 3. Partially visualized large bilateral pleural effusions. 4. Dilated visualized proximal esophagus with large amount of retained intraluminal particulate mat erial which may represent prominent gastroesophageal reflux or esophageal dysmotility. Questionable t hickening of the esophagus, esophageal mass cannot be excluded. Further evaluation recommended with cristian moe. Electronically signed by: Alen Pro MD 05/29/2023 12:43 AM CDT Due to temporary technical issues with the PACS/Fluency reporting system, reports are being signed by the in house radiologists without review as a courtesy to insure prompt reporting. The interpreting radiologist is fully responsible for the content of the report.
--- NOTE | 2023-05-29 21:31 | CON ---
Date of Consultation: 05/29/2023 Reason For Consultation: Elevated troponin. History Of Present Illness: An 88-year-old female with history of CVA, dyslipidemia, hypertension, d iabetes, presented with generalized weakness, tremors. No elida chest pain. Workup showed urinary t ract infection and apparently the family decided for comfort measures only and Hospice Care evaluated by bedside. She does not respond to questions and very poor historian. Past Medical History: As outlined above in the HPI. Medications: Refer reconciliation sheet for detailed list. Allergies: NO KNOWN DRUG ALLERGIES. Family History: No premature coronary artery disease or cancer. Social History: Does not smoke or drink. Does not use any drugs. Review of Systems: All systems reviewed and they are negative except what is mentioned in HPI. Physical Examination: Vital Signs: Reviewed. Head and Neck: Pupils are equal, reactive to light. No JVD. No cervical lymphadenopathy. Neck is supple. Thyroid is not enlarged. Lungs: Decreased breathing sounds present. No accessory muscle use or muscle retraction. Heart: Irregular. No extra sounds. Abdomen: Soft. Bowel sounds positive. No rigidity or rebound. Extremities: No clubbing, cyanosis. No edema. Skin: No rash. Neurologic: She is lethargic, but moving all extremities. Investigations: Troponin peaked at 1187. BUN is 19, creatinine 0.45, and hemoglobin is 8.4. Assessment And Recommendations: 1.Elevated troponin. This is probably non-ST elevation myocardial infarction, but it could also be demand ischemia as she has significant urinary tract infection. She will need further workup. Discu ssed with the family and with the primary hospitalist. A decision was made apparently to [place] to hospice care and noninvasive measures. At this point, given that decision is made, recommend to start her on baby aspirin and she is already on Eliquis, to continue that. I recommend beta-mari to keep her heart rate closer to 60 and if she becomes symptomatic, nitrates to be added, but from a cardiac standpoint, no invasive measurements will be done or testing and given that the patient and patient's family decided for hospice care. 2.History of stroke. Continue Eliquis. /CHRISTIAN Voice ID: [id number] Report ID: [id number]
== END 2023-05-29 20:15 | disposition hospice, home (50) | DRG 177 ==
LOC: ER 21:20 → ERHOLD 05-29 01:50 → 2ND 05-29 01:58
PROVIDERS: ADMIT Internal Medicine; ATTEND Internal Medicine
DX: J69.0 Pneumonitis due to inhalation of food and vomit (principal); G92.8 Other toxic encephalopathy; I21.4 Non-ST elevation (NSTEMI) myocardial infarction; N10 Acute pyelonephritis; E87.20 Acidosis, unspecified; E88.09 Other disorders of plasma-protein metabolism, not elsewhere classified; E11.65 Type 2 diabetes mellitus with hyperglycemia; K21.9 Gastro-esophageal reflux disease without esophagitis; I11.0 Hypertensive heart disease with heart failure; I50.9 Heart failure, unspecified; K22.89 Other specified disease of esophagus; E78.5 Hyperlipidemia, unspecified; F03.90 Unspecified dementia, unspecified severity, without behavioral disturbance, psychotic disturbance, mood disturbance, and anxiety; R79.89 Other specified abnormal findings of blood chemistry; R25.1 Tremor, unspecified; R29.718 NIHSS score 18; Z66 Do not resuscitate; Z51.5 Encounter for palliative care; Z79.01 Long term (current) use of anticoagulants; Z79.84 Long term (current) use of oral hypoglycemic drugs; Z86.73 Personal history of transient ischemic attack (TIA), and cerebral infarction without residual deficits; Z79.899 Other long term (current) drug therapy
CPT/HCPCS: 36415; 70450; 70496; 70498; 71045; 80048; 80053; 80076; 81001; 82947; 83605; 83735; 83880; 84439; 84443; 84484; 85025; 85610; 85730; 86140; 87040; 87086; 87088; 87205; 87804; 87811; 92610; 93005; J0696; J2270; J2405; J2543; J7030; P9047; Q9967